=== PATIENT | male | born 1930 | race Caucasian/White ===

== ENCOUNTER 2018-01-17 18:14 | Inpatient (IN) | payer MEDICARE, BC ==
[~2018-01-17] VITALS: Ht 177.8 cm; Wt 72.0 kg
[~2018-01-17 18:14] MED LIST: ASPI-1265 PO; ASPI81TA46 PO; ATOR-2 PO; BUPR150T8 PO; CLOP75TA33; MELA3TAB PO; NITR0.4T51 SL; OMEP40CA37 PO; ZET10T
[2018-01-17 18:42] LABS: BASOPHILS % (AUTO) 0.3 % (0-1); EOSINOPHILS # (AUTO) 0.2 X10'3 (0-0.9); EOSINOPHILS % (AUTO) 2.9 % (0-6); HEMATOCRIT 34.4 % (42.0-52.0); HEMOGLOBIN 11.4 g/dl (14.0-17.9); LYMPHOCYTES # (AUTO) 1.3 X10'3 (1.1-4.8); LYMPHOCYTES % (AUTO) 21.7 % (21-51); MEAN CORPUSCULAR HEMOGLOBIN 30.3 PG (27.0-31.0); MEAN CORPUSCULAR HGB CONC 33.2 % (33.0-36.5); MEAN CORPUSCULAR VOLUME 91.4 FL (78-98); MEAN PLATELET VOLUME 8.3 FL (7.4-10.4); MONOCYTES # (AUTO) 0.9 X10'3 (0-0.9); MONOCYTES % (AUTO) 14.4 % (2-12); NEUTROPHILS # (AUTO) 3.8 X10'3 (1.8-7.7); NEUTROPHILS % (AUTO) 60.7 % (42-75); PLATELET COUNT 184 X10'3 (140-440); RED BLOOD COUNT 3.77 X10'6 (4.70-6.10); RED CELL DISTRIBUTION WIDTH 17.8 % (11.5-14.5); WHITE BLOOD COUNT 6.2 X10'3 (4.5-11.0)
[2018-01-17 18:57] LABS: ALANINE AMINOTRANSFERASE 19 U/L (12-78); ALBUMIN 2.9 G/DL (3.4-5.0); ALBUMIN/GLOBULIN RATIO 0.8 (1.1-1.5); ALKALINE PHOSPHATASE 79 IU/L (46-116); ANION GAP 7 (8-16); ASPARTATE AMINO TRANSFERASE 19 U/L (10-37); BILIRUBIN,TOTAL 0.4 MG/DL (0.1-1.0); BLOOD UREA NITROGEN 31 MG/DL (7-18); BUN/CREATININE RATIO 20.8 (5.4-32.0); CALCIUM 8.3 MG/DL (8.5-10.1); CHLORIDE 103 MMOL/L (99-107); CREATININE 1.49 MG/DL (0.60-1.10); GLUCOSE 135 MG/DL (70-104); POTASSIUM 4.2 MMOL/L (3.5-5.1); SODIUM 137 MMOL/L (135-145); TOTAL CARBON DIOXIDE 27.3 MMOL/L (24-32); TOTAL PROTEIN 6.6 G/DL (6.4-8.2); eGFR 45 ML/MIN
[2018-01-17 19:00] LABS: INR 1.1 INR; PARTIAL THROMBOPLASTIN TIME 28 SECONDS (22-32); PROTHROMBIN TIME 11.4 SECONDS (9.0-12.0)
[2018-01-17] MEDS ORDERED: FURO-150 PO (19:14)
[2018-01-17] MEDS ORDERED: SACU1TAB (19:14)
[2018-01-17] MEDS ORDERED: TRAZ300T2 PO (19:14)
[2018-01-17] MEDS ORDERED: OMEP40CA37 PO (19:14)
[2018-01-17] MEDS ORDERED: LEVE500T PO (19:14)
[2018-01-17] MEDS ORDERED: CARV3.122 PO (19:14)
[2018-01-17] MEDS ORDERED: ESCI5TAB PO (19:14)
[2018-01-17] MEDS ORDERED: MAGN400C PO (19:14)
[2018-01-17] MEDS ORDERED: SPIR25TA5 PO (19:14)
[2018-01-17] MEDS ORDERED: ISOS10TA8 PO (19:14)
[2018-01-17] MEDS ORDERED: RANO500T3 PO (19:16)
[2018-01-18] VITALS (7 sets, daily range): BP systolic 103–137; BP diastolic 34–76
[2018-01-18] MEDS ORDERED: ondansetron/PF 4mg/2ml inj IV PRN (00:20)
[2018-01-18] MEDS ORDERED: mag hydrox/Alum hydrox/simeth 30ml oral suspension PO PRN (00:20)
[2018-01-18] MEDS ORDERED: magnesium hydroxide 30ml (MOM) UD suspension PO PRN (00:20)
[2018-01-18] MEDS ORDERED: acetaminophen 325mg tablet PO PRN (00:20)
[2018-01-18] MEDS ORDERED: nitroGLYCERIN 0.4mg SUBLingual tab SL PRN ×2 (00:25→08:55)
[2018-01-18] MEDS ORDERED: SACU1TAB PO (00:29)
[2018-01-18] MEDS: aspirin 81mg tab.chew PO SCH (07:57)
[2018-01-18] MEDS: citalopram 20mg tablet PO SCH (07:57)
[2018-01-18] MEDS: isosorbide mononitrate 30mg tab.SR.24H PO SCH (07:58)
[2018-01-18] MEDS: ranolazine 500mg SR tablet (Q12H) PO SCH (07:58)
[2018-01-18] MEDS: magnesium oxide 400mg tablet PO SCH ×2 (07:58→21:32)
[2018-01-18] MEDS: spironolactone 25 MG tablet PO SCH (07:58)
[2018-01-18] MEDS: furosemide 20MG tablet PO SCH ×2 (07:59→21:33)
[2018-01-18] MEDS: pantoprazole 40mg Tablet.DR PO SCH (07:59)
[2018-01-18] MEDS: levetiracetam 250mg tablet PO SCH ×2 (07:59→21:31)
[2018-01-18] MEDS: heparin, porcine 5000 units/ml vial SQ SCH ×2 (08:00→21:32)
[2018-01-18] MEDS: atorvastatin 20mg tablet PO SCH (08:00)
[2018-01-18] MEDS: sacubitril/valsartan 24mg-26mg tablet PO SCH ×2 (08:11→21:33)
[2018-01-18] MEDS: carVEDilol 3.125mg tablet PO SCH ×2 (08:12→21:33)
[2018-01-18] MEDS ORDERED: aminophylline 250mg/10ml inj. IV PRN (08:55)
[2018-01-18] MEDS ORDERED: regadenoson 0.4mg/5ml syringe IV ONE (08:55)
[2018-01-18] MEDS ORDERED: metoprolol tartrate 1mg/ml inj IV PRN (08:55)
[2018-01-18] MEDS ORDERED: traZODone 150mg tablet PO SCH (21:00)
[2018-01-19 02:00] VITALS: BP 92/48
[2018-01-19 06:00] VITALS: BP 111/42
[2018-01-19 06:05] LABS: BASOPHILS % (AUTO) 0.4 % (0-1); EOSINOPHILS # (AUTO) 0.3 X10'3 (0-0.9); EOSINOPHILS % (AUTO) 3.8 % (0-6); HEMATOCRIT 33.3 % (42.0-52.0); HEMOGLOBIN 11.1 g/dl (14.0-17.9); LYMPHOCYTES % (AUTO) 28.2 % (21-51); MEAN CORPUSCULAR HEMOGLOBIN 30.3 PG (27.0-31.0); MEAN CORPUSCULAR HGB CONC 33.2 % (33.0-36.5); MEAN CORPUSCULAR VOLUME 91.2 FL (78-98); MEAN PLATELET VOLUME 8.8 FL (7.4-10.4); MONOCYTES # (AUTO) 0.9 X10'3 (0-0.9); MONOCYTES % (AUTO) 12.8 % (2-12); NEUTROPHILS % (AUTO) 54.8 % (42-75); PLATELET COUNT 165 X10'3 (140-440); RED BLOOD COUNT 3.66 X10'6 (4.70-6.10); RED CELL DISTRIBUTION WIDTH 17.4 % (11.5-14.5); WHITE BLOOD COUNT 7.2 X10'3 (4.5-11.0)
[2018-01-19 06:09] LABS: ALANINE AMINOTRANSFERASE 17 U/L (12-78); ALBUMIN 2.7 G/DL (3.4-5.0); ALBUMIN/GLOBULIN RATIO 0.8 (1.1-1.5); ALKALINE PHOSPHATASE 72 IU/L (46-116); ANION GAP 8 (8-16); ASPARTATE AMINO TRANSFERASE 18 U/L (10-37); BILIRUBIN,TOTAL 0.7 MG/DL (0.1-1.0); BLOOD UREA NITROGEN 29 MG/DL (7-18); CALCIUM 8.4 MG/DL (8.5-10.1); CHLORIDE 104 MMOL/L (99-107); CREATININE 1.32 MG/DL (0.60-1.10); GLUCOSE 84 MG/DL (70-104); POTASSIUM 4.3 MMOL/L (3.5-5.1); SODIUM 139 MMOL/L (135-145); TOTAL CARBON DIOXIDE 26.8 MMOL/L (24-32); eGFR 52 ML/MIN
[2018-01-19] MEDS ORDERED: metoprolol tartrate 1mg/ml inj IV PRN (08:35)
[2018-01-19] MEDS ORDERED: aminophylline 250mg/10ml inj. IV PRN (08:35)
[2018-01-19] MEDS ORDERED: regadenoson 0.4mg/5ml syringe IV PRN (08:35)
[2018-01-19] MEDS ORDERED: nitroGLYCERIN 0.4mg SUBLingual tab SL PRN (08:35)
[2018-01-19] MEDS: carVEDilol 3.125mg tablet PO SCH (10:16)
[2018-01-19] MEDS: ranolazine 500mg SR tablet (Q12H) PO SCH (10:16)
[2018-01-19] MEDS: atorvastatin 20mg tablet PO SCH (10:18)
[2018-01-19] MEDS: isosorbide mononitrate 30mg tab.SR.24H PO SCH (10:18)
[2018-01-19] MEDS: furosemide 20MG tablet PO SCH (10:18)
[2018-01-19] MEDS: aspirin 81mg tab.chew PO SCH (10:19)
[2018-01-19] MEDS: citalopram 20mg tablet PO SCH (10:19)
[2018-01-19] MEDS: pantoprazole 40mg Tablet.DR PO SCH (10:19)
[2018-01-19] MEDS: spironolactone 25 MG tablet PO SCH (10:20)
[2018-01-19] MEDS: magnesium oxide 400mg tablet PO SCH (10:20)
[2018-01-19] MEDS: sacubitril/valsartan 24mg-26mg tablet PO SCH (10:20)
[2018-01-19] MEDS: levetiracetam 250mg tablet PO SCH (10:21)
[2018-01-19] MEDS: heparin, porcine 5000 units/ml vial SQ SCH (10:22)
[2018-01-19 11:00] VITALS: BP 88/41
[2018-01-19 12:15] VITALS: BP 93/44
== END 2018-01-19 14:40 | disposition home or self-care (01) | DRG 303 ==
LOC: ER 18:15 → ED HOLD 01-18 00:19 → PCU 3S 01-18 01:54
PROVIDERS: ADMIT Internal Medicine; ATTEND Family Medicine
DX: I25.119 Atherosclerotic heart disease of native coronary artery with unspecified angina pectoris (principal); G47.30 Sleep apnea, unspecified; I50.9 Heart failure, unspecified; K21.9 Gastro-esophageal reflux disease without esophagitis; N40.0 Benign prostatic hyperplasia without lower urinary tract symptoms; Z95.1 Presence of aortocoronary bypass graft; Z89.512 Acquired absence of left leg below knee; Z90.49 Acquired absence of other specified parts of digestive tract; Z88.8 Allergy status to other drugs, medicaments and biological substances; Z79.899 Other long term (current) drug therapy; Z79.82 Long term (current) use of aspirin; Z87.891 Personal history of nicotine dependence
CPT/HCPCS: 36415; 71045; 80053; 84484; 85025; 85610; 85730; 87070; 93005; 93306; G0378; J1644

== ENCOUNTER 2018-08-13 11:13 | Emergency (ER) | payer MEDICARE, BC ==
[~2018-08-13] VITALS: Ht 177.8 cm; Wt 75.9 kg
[~2018-08-13 11:13] MED LIST changes: -ASPI81TA46 PO; -BUPR150T8 PO; +CARV3.122 PO; -CLOP75TA33; +ESCI5TAB PO; +FURO-150 PO; +ISOS10TA8 PO; +LEVE500T PO; +MAGN400C PO; -MELA3TAB PO; +RANO500T3 PO; +SACU1TAB PO; +SPIR25TA5 PO; +TRAZ300T2 PO; -ZET10T
[2018-08-13 11:42] VITALS: BP 128/59
--- NOTE | 2018-08-13 12:31 | NUR ---
C/O UNPROD DRY COUGH X 2 DAYS
[2018-08-13] MEDS ORDERED: LEVO750T21 PO (12:51)
[2018-08-13] MEDS ORDERED: GUAI120L55 PO (12:51)
[2018-08-13] MEDS ORDERED: BENZ-16 PO (12:51)
== END 2018-08-13 13:07 | disposition home or self-care (01) ==
LOC: ER 11:13
DX: R05 Cough (principal); I25.10 Atherosclerotic heart disease of native coronary artery without angina pectoris; I50.9 Heart failure, unspecified; K21.9 Gastro-esophageal reflux disease without esophagitis; Z90.49 Acquired absence of other specified parts of digestive tract; Z95.1 Presence of aortocoronary bypass graft; Z98.890 Other specified postprocedural states; Z79.899 Other long term (current) drug therapy; Z79.82 Long term (current) use of aspirin
CPT/HCPCS: 99283

== ENCOUNTER 2019-02-28 11:42 | Emergency (ER) | payer MEDICARE, BC ==
[~2019-02-28] VITALS: Ht 177.8 cm; Wt 84.0 kg
[~2019-02-28 11:42] MED LIST changes: +GUAI120L55 PO; +OMEP40CA13 PO; -OMEP40CA37 PO
[2019-02-28 11:57] LABS: BASOPHILS % (AUTO) 0.4 % (0-1); EOSINOPHILS # (AUTO) 0.3 X10'3 (0-0.9); EOSINOPHILS % (AUTO) 3.5 % (0-6); HEMATOCRIT 36.3 % (42.0-52.0); LYMPHOCYTES % (AUTO) 27.2 % (21-51); MEAN CORPUSCULAR HEMOGLOBIN 29.5 PG (27.0-31.0); MEAN CORPUSCULAR HGB CONC 33.1 g/dL (33.0-36.5); MEAN CORPUSCULAR VOLUME 89.3 FL (78-98); MEAN PLATELET VOLUME 7.3 FL (7.4-10.4); MONOCYTES % (AUTO) 13.4 % (2-12); NEUTROPHILS % (AUTO) 55.5 % (42-75); PLATELET COUNT 195 X10'3 (140-440); RED BLOOD COUNT 4.07 X10'6 (4.70-6.10); RED CELL DISTRIBUTION WIDTH 18.9 % (11.5-14.5); WHITE BLOOD COUNT 7.2 X10'3 (4.5-11.0)
[2019-02-28 12:15] LABS: ALANINE AMINOTRANSFERASE 15 U/L (12-78); ALBUMIN 2.9 G/DL (3.4-5.0); ALBUMIN/GLOBULIN RATIO 0.8 (1.1-1.5); ALKALINE PHOSPHATASE 70 IU/L (46-116); ANION GAP 7 (8-16); ASPARTATE AMINO TRANSFERASE 12 U/L (10-37); BILIRUBIN,TOTAL 0.4 MG/DL (0.1-1.0); BLOOD UREA NITROGEN 27 MG/DL (7-18); BUN/CREATININE RATIO 20.5 (5.4-32.0); CALCIUM 8.6 MG/DL (8.5-10.1); CHLORIDE 108 MMOL/L (99-107); CREATININE 1.32 MG/DL (0.60-1.10); GLUCOSE 102 MG/DL (70-104); SODIUM 142 MMOL/L (135-145); TOTAL CARBON DIOXIDE 26.7 MMOL/L (24-32); TOTAL PROTEIN 6.4 G/DL (6.4-8.2); eGFR 51 ML/MIN
[2019-02-28 12:50] LABS: ANISOCYTOSIS 2+; PLATELET ESTIMATE NORMAL; SCHISTOCYTES FEW
[2019-02-28 12:51] LABS: ELLIPTOCYTES FEW
[2019-02-28 13:13] VITALS: BP 134/79
--- NOTE | 2019-02-28 13:15 | NUR ---
PT'S VERY UPSET ABOUT WAIT TIMES. I EXPLAINED THAT WE WERE WAITING ON LABS/TEST AND SHE IS STILL UPSET.
--- NOTE | 2019-02-28 13:22 | NUR ---
DR OREILLY AT BEDSIDE.
== END 2019-02-28 14:09 | disposition home or self-care (01) ==
LOC: ER 11:43
DX: R07.89 Other chest pain (principal); R42 Dizziness and giddiness; I25.10 Atherosclerotic heart disease of native coronary artery without angina pectoris; I50.9 Heart failure, unspecified; G47.30 Sleep apnea, unspecified; K21.9 Gastro-esophageal reflux disease without esophagitis; Z90.49 Acquired absence of other specified parts of digestive tract; Z95.1 Presence of aortocoronary bypass graft; Z98.890 Other specified postprocedural states; Z88.8 Allergy status to other drugs, medicaments and biological substances; Z79.82 Long term (current) use of aspirin; Z79.899 Other long term (current) drug therapy
CPT/HCPCS: 36415; 71045; 80053; 84484; 85025; 93005; 99284

== ENCOUNTER 2019-04-16 12:51 | Emergency (ER) | payer MEDICARE, BC ==
[~2019-04-16] VITALS: Ht 177.8 cm; Wt 80.0 kg
[2019-04-16 13:28] LABS: BASOPHILS % (AUTO) 0.4 % (0-1); EOSINOPHILS # (AUTO) 0.2 X10'3 (0-0.9); EOSINOPHILS % (AUTO) 3.2 % (0-6); HEMATOCRIT 33.5 % (42.0-52.0); HEMOGLOBIN 11.2 g/dl (14.0-17.9); LYMPHOCYTES # (AUTO) 1.5 X10'3 (1.1-4.8); LYMPHOCYTES % (AUTO) 27.3 % (21-51); MEAN CORPUSCULAR HEMOGLOBIN 29.6 PG (27.0-31.0); MEAN CORPUSCULAR HGB CONC 33.3 g/dL (33.0-36.5); MEAN CORPUSCULAR VOLUME 88.8 FL (78-98); MEAN PLATELET VOLUME 7.5 FL (7.4-10.4); MONOCYTES # (AUTO) 0.7 X10'3 (0-0.9); NEUTROPHILS % (AUTO) 56.1 % (42-75); PLATELET COUNT 162 X10'3 (140-440); RED BLOOD COUNT 3.77 X10'6 (4.70-6.10); RED CELL DISTRIBUTION WIDTH 18.1 % (11.5-14.5); WHITE BLOOD COUNT 5.4 X10'3 (4.5-11.0)
[2019-04-16 13:46] LABS: ALANINE AMINOTRANSFERASE 19 U/L (12-78); ALBUMIN 2.8 G/DL (3.4-5.0); ALBUMIN/GLOBULIN RATIO 0.9 (1.1-1.5); ALKALINE PHOSPHATASE 63 IU/L (46-116); ANION GAP 7 (8-16); ASPARTATE AMINO TRANSFERASE 15 U/L (10-37); BILIRUBIN,TOTAL 0.3 MG/DL (0.1-1.0); BLOOD UREA NITROGEN 21 MG/DL (7-18); BUN/CREATININE RATIO 16.7 (5.4-32.0); CALCIUM 8.3 MG/DL (8.5-10.1); CHLORIDE 107 MMOL/L (99-107); CREATININE 1.26 MG/DL (0.60-1.10); GLUCOSE 93 MG/DL (70-104); POTASSIUM 4.6 MMOL/L (3.5-5.1); SODIUM 141 MMOL/L (135-145); TOTAL CARBON DIOXIDE 27.4 MMOL/L (24-32); eGFR 54 ML/MIN
[2019-04-16 16:13] VITALS: BP 101/63
== END 2019-04-16 16:15 | disposition home or self-care (01) ==
LOC: ER 12:52
DX: R07.89 Other chest pain (principal); I25.10 Atherosclerotic heart disease of native coronary artery without angina pectoris; I50.9 Heart failure, unspecified; K21.9 Gastro-esophageal reflux disease without esophagitis; Z90.49 Acquired absence of other specified parts of digestive tract; Z89.512 Acquired absence of left leg below knee; Z95.1 Presence of aortocoronary bypass graft; Z98.890 Other specified postprocedural states; Z88.8 Allergy status to other drugs, medicaments and biological substances; Z79.82 Long term (current) use of aspirin; Z79.899 Other long term (current) drug therapy
CPT/HCPCS: 36415; 71045; 80053; 84484; 85025; 93005; 99284

== ENCOUNTER 2019-05-04 14:33 | Emergency (ER) | payer MEDICARE, BC ==
[~2019-05-04] VITALS: Ht 177.8 cm; Wt 160.0 kg
[2019-05-04] MEDS ORDERED: aspirin 325mg tablet PO ONE (14:50)
[2019-05-04 14:54] LABS: BASOPHILS % (AUTO) 0.5 % (0-1); EOSINOPHILS # (AUTO) 0.1 X10'3 (0-0.9); EOSINOPHILS % (AUTO) 1.7 % (0-6); HEMATOCRIT 33.2 % (42.0-52.0); HEMOGLOBIN 11.1 g/dl (14.0-17.9); LYMPHOCYTES # (AUTO) 1.8 X10'3 (1.1-4.8); LYMPHOCYTES % (AUTO) 27.4 % (21-51); MEAN CORPUSCULAR HEMOGLOBIN 29.9 PG (27.0-31.0); MEAN CORPUSCULAR HGB CONC 33.5 g/dL (33.0-36.5); MEAN CORPUSCULAR VOLUME 89.5 FL (78-98); MEAN PLATELET VOLUME 7.4 FL (7.4-10.4); MONOCYTES # (AUTO) 0.7 X10'3 (0-0.9); MONOCYTES % (AUTO) 10.8 % (2-12); NEUTROPHILS # (AUTO) 3.9 X10'3 (1.8-7.7); NEUTROPHILS % (AUTO) 59.6 % (42-75); PLATELET COUNT 164 X10'3 (140-440); RED BLOOD COUNT 3.71 X10'6 (4.70-6.10); RED CELL DISTRIBUTION WIDTH 18.4 % (11.5-14.5); WHITE BLOOD COUNT 6.5 X10'3 (4.5-11.0)
[2019-05-04 15:06] LABS: ALANINE AMINOTRANSFERASE 13 U/L (12-78); ALKALINE PHOSPHATASE 70 IU/L (46-116); ANION GAP 8 (8-16); ASPARTATE AMINO TRANSFERASE 18 U/L (10-37); BILIRUBIN,TOTAL 0.7 MG/DL (0.1-1.0); BLOOD UREA NITROGEN 20 MG/DL (7-18); BUN/CREATININE RATIO 18.2 (5.4-32.0); CALCIUM 8.3 MG/DL (8.5-10.1); CHLORIDE 106 MMOL/L (99-107); GLUCOSE 104 MG/DL (70-104); POTASSIUM 4.1 MMOL/L (3.5-5.1); SODIUM 139 MMOL/L (135-145); TOTAL CARBON DIOXIDE 24.8 MMOL/L (24-32); TOTAL PROTEIN 6.1 G/DL (6.4-8.2); eGFR 63 ML/MIN
[2019-05-04 15:26] VITALS: BP 147/66
== END 2019-05-04 16:09 | disposition home or self-care (01) ==
LOC: ER 14:33
DX: R07.89 Other chest pain (principal); I25.10 Atherosclerotic heart disease of native coronary artery without angina pectoris; I50.9 Heart failure, unspecified; G47.30 Sleep apnea, unspecified; K21.9 Gastro-esophageal reflux disease without esophagitis; Z90.49 Acquired absence of other specified parts of digestive tract; Z98.890 Other specified postprocedural states; Z95.1 Presence of aortocoronary bypass graft; Z88.8 Allergy status to other drugs, medicaments and biological substances; Z79.82 Long term (current) use of aspirin; Z79.899 Other long term (current) drug therapy
CPT/HCPCS: 36415; 71045; 80053; 84484; 85025; 93005; 99285

== ENCOUNTER 2021-11-10 10:29 | Inpatient (IN) | payer MEDICARE, BC ==
[~2021-11-10] VITALS: Ht 177.8 cm; Wt 74.0 kg
[~2021-11-10 10:29] MED LIST changes: -OMEP40CA13 PO; +OMEP40CA21 PO
[2021-11-10] MEDS ORDERED: CefTRIAXone 2gm/D5W 50ml BAG 50 ML IV ONE (10:45)
[2021-11-10] MEDS ORDERED: acetaminophen 325mg tablet PO STA (10:45)
[2021-11-10] MEDS ORDERED: normal saline 1000ML IV soln IV ONE (10:45)
[2021-11-10 11:14] LABS: BASOPHILS % (AUTO) 0.2 % (0-1); EOSINOPHILS % (AUTO) 0 % (0-6); HEMATOCRIT 35.6 % (42.0-52.0); LYMPHOCYTES # (AUTO) 0.7 X10'3 (1.1-4.8); LYMPHOCYTES % (AUTO) 5.2 % (21-51); MEAN CORPUSCULAR HEMOGLOBIN 35.4 PG (27.0-31.0); MEAN CORPUSCULAR HGB CONC 33.8 g/dL (33.0-36.5); MEAN CORPUSCULAR VOLUME 104.7 FL (78-98); MEAN PLATELET VOLUME 8.3 FL (7.4-10.4); MONOCYTES # (AUTO) 1.6 X10'3 (0-0.9); MONOCYTES % (AUTO) 12.7 % (2-12); NEUTROPHILS # (AUTO) 10.4 X10'3 (1.8-7.7); NEUTROPHILS % (AUTO) 81.9 % (42-75); PLATELET COUNT 86 X10'3 (140-440); RED CELL DISTRIBUTION WIDTH 14.3 % (11.5-14.5); WHITE BLOOD COUNT 12.7 X10'3 (4.5-11.0)
[2021-11-10] MEDS ORDERED: METO-395 PO (11:31)
[2021-11-10] MEDS ORDERED: [UNRECOGNIZED DRUG - OTHER] (11:31)
[2021-11-10] MEDS ORDERED: CLOP75TA34 PO (11:31)
[2021-11-10] MEDS ORDERED: [UNRECOGNIZED DRUG - REMARK] (11:31)
--- NOTE | 2021-11-10 11:31 | NUR ---
Attempted to reconcile medications. Pt is a poor historian and his medication list is incomplete.
[2021-11-10] MEDS ORDERED: azithromycin/NS 500mg/250ml 250 ML IV ONE (11:35)
--- NOTE | 2021-11-10 11:35 | NUR ---
LA 4.1. INFORMED NOEL CARLIN
[2021-11-10 11:38] LABS: ALANINE AMINOTRANSFERASE 51 U/L (12-78); ALBUMIN 2.7 G/DL (3.4-5.0); ALBUMIN/GLOBULIN RATIO 0.8 (1.1-1.5); ALKALINE PHOSPHATASE 77 IU/L (46-116); ANION GAP 12 (8-16); ASPARTATE AMINO TRANSFERASE 66 U/L (10-37); BILIRUBIN,TOTAL 1.1 MG/DL (0.1-1.0); BLOOD UREA NITROGEN 40 MG/DL (7-18); BUN/CREATININE RATIO 25.5 (5.4-32.0); CALCIUM 8.2 MG/DL (8.5-10.1); CHLORIDE 102 MMOL/L (99-107); CREATININE 1.57 MG/DL (0.60-1.10); GLUCOSE 128 MG/DL (70-104); POTASSIUM 3.9 MMOL/L (3.5-5.1); SODIUM 136 MMOL/L (135-145); TOTAL CARBON DIOXIDE 21.7 MMOL/L (24-32); TOTAL PROTEIN 6.2 G/DL (6.4-8.2); eGFR 42 ML/MIN
[2021-11-10] MEDS ORDERED: methylPREDNISolone sod succ 125mg/2ml vial IV ONE (11:40)
[2021-11-10] MEDS ORDERED: ipratropium/albuterol 3ml nebule NEB ONE (11:40)
[2021-11-10] MEDS ORDERED: vancomycin/NS 1 GM ADD-VANTAGE 250 ML IV ONE (11:45)
[2021-11-10] MEDS ORDERED: ATOR40TA71 PO (12:22)
[2021-11-10] MEDS ORDERED: METO25TA6 PO (13:07)
[2021-11-10] MEDS ORDERED: LIPA1CAP18 PO (13:15)
[2021-11-10] MEDS ORDERED: PANT20TA18 PO (13:16)
[2021-11-10] MEDS ORDERED: ISOS30TA84 PO (13:17)
[2021-11-10 13:24] LABS: CLARITY,URINE CLEAR (Clear); COLOR,URINE YELLOW (Yellow); GLUCOSE, URINE NEGATIVE (Neg); KETONES,URINE NEGATIVE (Neg); LEUKOCYTE ESTERASE ,URINE NEGATIVE (Neg); NITRITES, URINE NEGATIVE (Neg); OCCULT BLOOD,URINE MODERATE (Neg); PH,URINE 5.5 (4.8-8.0); PROTEIN,URINE 100 mg/dl (Neg); UROBILINOGEN,URINE 0.2 E.U/dL (0.2-1.0)
[2021-11-10 13:27] LABS: UA COLLECTION TYPE OTHER
[2021-11-10 13:31] LABS: MUCUS STRANDS FEW /LPF (Neg)
[2021-11-10 13:32] LABS: COARSE GRANULAR CAST 0-3 /LPF (NEGATIVE); SQUAMOUS EPITHELIAL CELL,UR FEW /LPF (FEW)
[2021-11-10 13:35] LABS: AMORPHOUS URATES 1+; BACTERIA,URINE FEW /HPF (Neg)
[2021-11-10] MEDS ORDERED: mag hydrox/Alum hydrox/simeth 30ml oral suspension PO PRN (14:15)
[2021-11-10] MEDS ORDERED: magnesium hydroxide 30ml (MOM) UD suspension PO PRN (14:15)
[2021-11-10] MEDS ORDERED: POTASSIUM BICARB 20meq eff tab 20 MEQ TABLET.EFF PO PRN ×2 (14:15)
[2021-11-10] MEDS ORDERED: magnesium 4gm in 100ml NS 100 ML IV PRN (14:15)
[2021-11-10] MEDS ORDERED: potassium CL 10mEq/100ml bag 100 ML IV PRN (14:15)
[2021-11-10] MEDS ORDERED: magnesium Cl slow-release 64mg tablet PO PRN (14:15)
[2021-11-10] MEDS ORDERED: HYDROmorphone/PF 0.2 MG/ML SYRINGE IV PRN (14:15)
[2021-11-10] MEDS ORDERED: acetaminophen 650mg rectal suppository RC PRN (14:15)
[2021-11-10] MEDS ORDERED: HYDROmorphone inj. 0.5 MG/0.5 ML DISP.SYRIN IV PRN (14:15)
[2021-11-10] MEDS ORDERED: TRAZ-251 PO (14:15)
[2021-11-10] MEDS ORDERED: acetaminophen 325mg tablet PO PRN (14:15)
[2021-11-10] MEDS ORDERED: bisacodyl 10mg suppository rectal RC PRN (14:15)
[2021-11-10] MEDS ORDERED: ondansetron 4mg rapidly disintigrating tab PO PRN (14:15)
[2021-11-10] MEDS ORDERED: ondansetron/PF 4mg/2ml inj IV PRN (14:15)
[2021-11-10] MEDS ORDERED: magnesium 2GM in 50ml NS 50 ML IV PRN (14:15)
[2021-11-10] MEDS ORDERED: nitroGLYCERIN 0.4mg SUBLingual tab SL PRN (14:40)
[2021-11-10] MEDS ORDERED: HEPARIN SOD,PORK IN 0.45% NACL 250 ML IV SCH ×2 (14:50→15:14)
[2021-11-10] MEDS ORDERED: heparin 10,000 units/1 ML INJ IV PRN (14:50)
[2021-11-10] MEDS ORDERED: heparin 10,000 units/1 ML INJ IV ONE (14:50)
[2021-11-10 14:55] LABS: MAGNESIUM 1.7 MG/DL (1.5-2.4); PHOSPHORUS 2.9 MG/DL (2.3-4.5); POTASSIUM 3.7 MMOL/L (3.5-5.1)
[2021-11-10 16:00] LABS: BASOPHILS % (AUTO) 0.1 % (0-1); EOSINOPHILS % (AUTO) 0 % (0-6); HEMATOCRIT 32.5 % (42.0-52.0); HEMOGLOBIN 11.1 g/dl (14.0-17.9); LYMPHOCYTES # (AUTO) 0.8 X10'3 (1.1-4.8); LYMPHOCYTES % (AUTO) 6.5 % (21-51); MEAN CORPUSCULAR HEMOGLOBIN 35.4 PG (27.0-31.0); MEAN CORPUSCULAR HGB CONC 34.3 g/dL (33.0-36.5); MEAN CORPUSCULAR VOLUME 103.2 FL (78-98); MEAN PLATELET VOLUME 8.7 FL (7.4-10.4); MONOCYTES % (AUTO) 8.4 % (2-12); NEUTROPHILS # (AUTO) 10.5 X10'3 (1.8-7.7); PLATELET COUNT 85 X10'3 (140-440); RED BLOOD COUNT 3.15 X10'6 (4.70-6.10); RED CELL DISTRIBUTION WIDTH 14.2 % (11.5-14.5); WHITE BLOOD COUNT 12.4 X10'3 (4.5-11.0)
[2021-11-10 16:08] LABS: APTT 31 SECONDS (22-32)
[2021-11-10] MEDS: normal saline 1000ml 1,000 ML IV SCH (16:31)
[2021-11-10] MEDS: docusate sod 100mg capsule PO SCH (19:29)
[2021-11-10] MEDS: K and/or MAG REPLACEMENT MC SCH (19:29)
[2021-11-10] MEDS: sacubitril/valsartan 24mg-26mg tablet PO SCH (19:30)
[2021-11-10] MEDS: ranolazine 500mg SR tablet (Q12H) PO SCH (19:30)
[2021-11-10] MEDS: metoprolol tartrate 25mg tablet PO SCH (19:30)
[2021-11-10] MEDS: LIPASE PO SCH (19:37)
[2021-11-10] MEDS: PROTEASE PO SCH (19:37)
[2021-11-10] MEDS: AMYLASE PO SCH (19:37)
[2021-11-10 22:56] LABS: APTT 70 SECONDS (22-32)
[2021-11-11] MEDS: normal saline 1000ml 1,000 ML IV SCH ×3 (00:15→20:15)
--- NOTE | 2021-11-11 01:18 | NUR ---
NOTIFIED DR. PAGE OF LOW BP. LAID EYES ON PT. BP IS NOW 122/51.
[2021-11-11 03:44] LABS: BASOPHILS % (AUTO) 0.1 % (0-1); EOSINOPHILS % (AUTO) 0 % (0-6); HEMATOCRIT 33.3 % (42.0-52.0); HEMOGLOBIN 11.3 g/dl (14.0-17.9); LYMPHOCYTES # (AUTO) 0.6 X10'3 (1.1-4.8); LYMPHOCYTES % (AUTO) 5.2 % (21-51); MEAN CORPUSCULAR HEMOGLOBIN 35.2 PG (27.0-31.0); MEAN CORPUSCULAR HGB CONC 33.9 g/dL (33.0-36.5); MEAN CORPUSCULAR VOLUME 104.1 FL (78-98); MEAN PLATELET VOLUME 8.5 FL (7.4-10.4); MONOCYTES # (AUTO) 0.5 X10'3 (0-0.9); MONOCYTES % (AUTO) 4.5 % (2-12); NEUTROPHILS # (AUTO) 10.6 X10'3 (1.8-7.7); NEUTROPHILS % (AUTO) 90.2 % (42-75); PLATELET COUNT 91 X10'3 (140-440); RED CELL DISTRIBUTION WIDTH 14.4 % (11.5-14.5); WHITE BLOOD COUNT 11.8 X10'3 (4.5-11.0)
[2021-11-11 04:02] LABS: APTT 63 SECONDS (22-32)
[2021-11-11 04:03] LABS: ALANINE AMINOTRANSFERASE 44 U/L (12-78); ALBUMIN 2.3 G/DL (3.4-5.0); ALBUMIN/GLOBULIN RATIO 0.7 (1.1-1.5); ALKALINE PHOSPHATASE 65 IU/L (46-116); ANION GAP 10 (8-16); ASPARTATE AMINO TRANSFERASE 45 U/L (10-37); BILIRUBIN,TOTAL 0.8 MG/DL (0.1-1.0); BLOOD UREA NITROGEN 40 MG/DL (7-18); BUN/CREATININE RATIO 31.3 (5.4-32.0); CALCIUM 7.7 MG/DL (8.5-10.1); CHLORIDE 107 MMOL/L (99-107); CREATININE 1.28 MG/DL (0.60-1.10); GLUCOSE 150 MG/DL (70-104); MAGNESIUM 1.9 MG/DL (1.5-2.4); POTASSIUM 3.8 MMOL/L (3.5-5.1); SODIUM 143 MMOL/L (135-145); TOTAL CARBON DIOXIDE 25.6 MMOL/L (24-32); TOTAL PROTEIN 5.6 G/DL (6.4-8.2); eGFR 53 ML/MIN
--- NOTE | 2021-11-11 06:33 | NUR ---
Assumed patient care at this time.
[2021-11-11] MEDS: LIPASE/PROTEASE/AMYLASE 10,500 units CAPSULE.DR PO SCH (06:40)
--- NOTE | 2021-11-11 07:11 | NUR ---
Report given to NOEL Pérez
[2021-11-11 08:00] VITALS: BP 144/60
[2021-11-11] MEDS: AMYLASE PO SCH (08:00)
[2021-11-11] MEDS: PROTEASE PO SCH (08:00)
[2021-11-11] MEDS: LIPASE PO SCH (08:00)
[2021-11-11] MEDS: K and/or MAG REPLACEMENT MC SCH ×2 (08:00→20:00)
[2021-11-11] MEDS ORDERED: PERFLUTREN PROTEIN-A MICROSPHR (Optison) 0.22 MG/ML 3ML VIAL IV ONE (08:10)
[2021-11-11] MEDS: CefTRIAXone/D5W-Rocephin 1gm 50 ML IV SCH (09:15)
[2021-11-11] MEDS: sacubitril/valsartan 24mg-26mg tablet PO SCH ×2 (09:43→20:00)
[2021-11-11] MEDS: aspirin 81mg tab.chew PO SCH (09:44)
[2021-11-11] MEDS: docusate sod 100mg capsule PO SCH ×2 (09:44→22:56)
[2021-11-11] MEDS: ranolazine 500mg SR tablet (Q12H) PO SCH ×2 (09:44→22:57)
[2021-11-11] MEDS: pantoprazole 40mg Tablet.DR PO SCH (09:44)
[2021-11-11] MEDS: clopidogrel 75mg tablet PO SCH (09:44)
[2021-11-11] MEDS: atorvastatin 20mg tablet PO SCH (09:44)
[2021-11-11] MEDS: isosorbide mononitrate 30mg tab.SR.24H PO SCH (09:45)
[2021-11-11] MEDS: ESCITALOPRAM OXALATE 5 MG TABLET PO SCH (09:45)
[2021-11-11] MEDS: metoprolol tartrate 25mg tablet PO SCH ×2 (09:45→20:00)
[2021-11-11 09:59] LABS: APTT 39 SECONDS (22-32)
[2021-11-11] MEDS: azithromycin/NS 500mg/250ml 250 ML IV SCH (10:33)
[2021-11-11] MEDS ORDERED: LIPASE/PROTEASE/AMYLASE 10,500 units CAPSULE.DR PO SCH (12:32)
--- NOTE | 2021-11-11 13:32 | NUR ---
PRESSURE ULCER EDUCATION: DEFINITION: A pressure ulcer is an area of skin that breaks down when you stay in one position too long. The constant pressure against the skin reduces the blood flow to that area and the affected tissue dies. CAUSES: "Being bedridden or in a wheelchair "Fragile skin "Having a chronic condition, such as diabetes or vascular disease "Inability to move certain parts of your body without assistance "Older age "Incontinence of urine or stool SYMPTOMS: "A reddened area that DOES NOT turn white when pressed on - this can be the beginning of a pressure ulcer "A blister, deep sore or a crater - these can be advanced pressure ulcers FIRST AID: "Relieve the pressure on this area "Keep the area clean and dry "Call your primary doctor if you see any of the above symptoms "DO NOT massage the area "DO NOT use a donut shaped or ring shaped pillow- these actually interfere with the blood flow and cause complications PREVENTION: "Check for pressure ulcers everyday "Change position at least every two hours to relieve pressure "Use items that help relieve pressure- pillows, sheepskin, foam padding, and powders. "Keep skin clean and dry "Eat healthy well balanced meals "Exercise daily IF YOU SEE ANY OF THESE SYMPTOMS WHILE IN THE HOSPITAL - TELL YOUR NURSE IMMEDIATELY. IF YOU SEE ANY OF THESE SYMPTOMS WHILE AT HOME OR HAVE ANY QUESTIONS OR CONCERNS ABOUT PRESSURE ULCERS - CALL YOUR PRIMARY DOCTOR IMMEDIATELY. Addendum: 11/11/21 at 1332 by Ria Adam LVN Amended: Links added.
[2021-11-11] MEDS: VANCOMYCIN 750MG IV in NS 250 ML IV SCH (14:00)
--- NOTE | 2021-11-11 15:11 | NUR ---
Malnutrition Consult: Pt admit DX sepsis, possible PNA, diarrhea c.diff pending, NSTEMI, CHF, and depression per EMR. Pt reports wt loss w/ decreased intake SONG PLUGGER but no wt loss amount chosen per RN Malnutrition Screen. Noted pt takes ranexa at home per EMR; may contribute to wt changes. Pt PO 75% first heart healthy meal this admit w/ no edema, normal muscle strength, and appears WD/WN per MD note. Pending scaled wt this admit w/ no prior scaled wt hx. Pt lacks minimum malnutrition criteria at this time. Noted Sacral stage I PI per WOC w/ R popliteal Riddle Cyst per MD note. Will monitor for further PO trends and nutrition intervention needs this admit. Rec: 1. continue heart healthy diet; consider regular diet if further PO regresses 2. monitor for PO trends and ONS needs 3. MVI supplementation per MD discretion; MCV 104.1 per EMR 4. routine bowel care 5. scaled wt this admit; subsequent weekly wts Addendum: 11/11/21 at [address] Amended: Links added.
[2021-11-11] MEDS: HYDROcodone/acetaminophen 10/325mg tab PO PRN (15:20)
[2021-11-11 15:39] VITALS: BP 96/44
--- NOTE | 2021-11-11 16:13 | NUR ---
PAGER ID: [phone] MESSAGE: RE CRYSTAL FRANCES [id number] PLEASE YEN CALL RE MRI/HEPARIN THANK YOU , DOROTHY COHEN
[2021-11-11 18:00] VITALS: BP 85/56
[2021-11-11 22:00] VITALS: BP 82/46
[2021-11-11] MEDS: heparin, porcine 5000 units/ml vial SQ SCH (22:58)
[2021-11-12 02:00] VITALS: BP 82/54
--- NOTE | 2021-11-12 05:51 | NUR ---
REVIEWED SOLAR HOT WATER INSTALLER CHARTING AND IN AGREEMENT.
[2021-11-12 06:00] VITALS: BP 90/56
[2021-11-12 06:11] LABS: BASOPHILS % (AUTO) 0.1 % (0-1); EOSINOPHILS % (AUTO) 0 % (0-6); HEMATOCRIT 31.5 % (42.0-52.0); HEMOGLOBIN 10.8 g/dl (14.0-17.9); LYMPHOCYTES # (AUTO) 0.8 X10'3 (1.1-4.8); MEAN CORPUSCULAR HEMOGLOBIN 35.8 PG (27.0-31.0); MEAN CORPUSCULAR HGB CONC 34.2 g/dL (33.0-36.5); MEAN CORPUSCULAR VOLUME 104.7 FL (78-98); MEAN PLATELET VOLUME 8.8 FL (7.4-10.4); MONOCYTES # (AUTO) 0.8 X10'3 (0-0.9); MONOCYTES % (AUTO) 5.1 % (2-12); NEUTROPHILS # (AUTO) 13.7 X10'3 (1.8-7.7); NEUTROPHILS % (AUTO) 89.8 % (42-75); PLATELET COUNT 102 X10'3 (140-440); RED BLOOD COUNT 3.01 X10'6 (4.70-6.10); RED CELL DISTRIBUTION WIDTH 14.8 % (11.5-14.5); WHITE BLOOD COUNT 15.3 X10'3 (4.5-11.0)
[2021-11-12] MEDS: normal saline 1000ml 1,000 ML IV SCH ×2 (06:15→14:43)
[2021-11-12 06:28] LABS: ALANINE AMINOTRANSFERASE 42 U/L (12-78); ALBUMIN 2.1 G/DL (3.4-5.0); ALBUMIN/GLOBULIN RATIO 0.6 (1.1-1.5); ALKALINE PHOSPHATASE 63 IU/L (46-116); ANION GAP 10 (8-16); ASPARTATE AMINO TRANSFERASE 32 U/L (10-37); BILIRUBIN,TOTAL 0.6 MG/DL (0.1-1.0); BLOOD UREA NITROGEN 44 MG/DL (7-18); BUN/CREATININE RATIO 36.1 (5.4-32.0); CHLORIDE 105 MMOL/L (99-107); CREATININE 1.22 MG/DL (0.60-1.10); GLUCOSE 123 MG/DL (70-104); MAGNESIUM 1.9 MG/DL (1.5-2.4); POTASSIUM 4.2 MMOL/L (3.5-5.1); SODIUM 136 MMOL/L (135-145); TOTAL CARBON DIOXIDE 21.2 MMOL/L (24-32); TOTAL PROTEIN 5.4 G/DL (6.4-8.2); eGFR 56 ML/MIN
[2021-11-12] MEDS: LIPASE/PROTEASE/AMYLASE 10,500 units CAPSULE.DR PO SCH ×3 (07:30→18:04)
[2021-11-12] MEDS: isosorbide mononitrate 30mg tab.SR.24H PO SCH (08:00)
[2021-11-12] MEDS: sacubitril/valsartan 24mg-26mg tablet PO SCH ×2 (08:00→23:36)
[2021-11-12] MEDS: K and/or MAG REPLACEMENT MC SCH ×2 (08:00→20:00)
[2021-11-12] MEDS: metoprolol tartrate 25mg tablet PO SCH ×2 (08:00→20:00)
[2021-11-12] MEDS: aspirin 81mg tab.chew PO SCH (08:36)
[2021-11-12] MEDS: atorvastatin 20mg tablet PO SCH (08:36)
[2021-11-12] MEDS: ranolazine 500mg SR tablet (Q12H) PO SCH ×2 (08:36→23:36)
[2021-11-12] MEDS: CefTRIAXone/D5W-Rocephin 1gm 50 ML IV SCH (08:36)
[2021-11-12] MEDS: azithromycin/NS 500mg/250ml 250 ML IV SCH (08:36)
[2021-11-12] MEDS: clopidogrel 75mg tablet PO SCH (08:36)
[2021-11-12] MEDS: ESCITALOPRAM OXALATE 5 MG TABLET PO SCH (08:36)
[2021-11-12] MEDS: pantoprazole 40mg Tablet.DR PO SCH (08:36)
[2021-11-12] MEDS: docusate sod 100mg capsule PO SCH ×2 (08:36→23:35)
[2021-11-12] MEDS: heparin, porcine 5000 units/ml vial SQ SCH ×2 (08:37→23:38)
[2021-11-12] MEDS: HYDROcodone/acetaminophen 10/325mg tab PO PRN ×2 (08:40→23:50)
[2021-11-12 11:00] VITALS: BP 112/50
--- NOTE | 2021-11-12 11:51 | NUR ---
PAGER ID: [phone] MESSAGE: MOSES FRANCES RM [id number] + MRSA BLOOD CULTURE THANK YOU, DOROTHY COHEN
[2021-11-12] MEDS: VANCOMYCIN 750MG IV in NS 250 ML IV SCH (14:38)
[2021-11-12 14:50] LABS: CHOL/HDL RATIO 2.5 (0.00-4.99); CHOLESTEROL 111 MG/DL (0-200); HDL CHOLESTEROL 45 MG/DL (35-60); LDL CHOLESTEROL 48 MG/DL (50-100); TRIGLYCERIDES 66 MG/DL (20-135)
[2021-11-12 15:00] VITALS: BP 123/64
[2021-11-12 15:36] LABS: HEMOGLOBIN A1C 5.9 % (4.5-6.2)
[2021-11-12 18:00] VITALS: BP 124/67
[2021-11-12 22:00] VITALS: BP 144/68
[2021-11-13 02:00] VITALS: BP 122/47
[2021-11-13] MEDS: normal saline 1000ml 1,000 ML IV SCH ×3 (02:11→12:48)
[2021-11-13 06:00] VITALS: BP 130/60
[2021-11-13 06:57] LABS: BASOPHILS % (AUTO) 0.1 % (0-1); EOSINOPHILS % (AUTO) 0 % (0-6); HEMATOCRIT 32.8 % (42.0-52.0); HEMOGLOBIN 11.4 g/dl (14.0-17.9); LYMPHOCYTES # (AUTO) 0.8 X10'3 (1.1-4.8); LYMPHOCYTES % (AUTO) 7.3 % (21-51); MEAN CORPUSCULAR HEMOGLOBIN 35.9 PG (27.0-31.0); MEAN CORPUSCULAR HGB CONC 34.8 g/dL (33.0-36.5); MEAN CORPUSCULAR VOLUME 103.3 FL (78-98); MEAN PLATELET VOLUME 8.5 FL (7.4-10.4); MONOCYTES % (AUTO) 8.8 % (2-12); NEUTROPHILS # (AUTO) 9.5 X10'3 (1.8-7.7); NEUTROPHILS % (AUTO) 83.8 % (42-75); PLATELET COUNT 105 X10'3 (140-440); RED BLOOD COUNT 3.17 X10'6 (4.70-6.10); RED CELL DISTRIBUTION WIDTH 14.6 % (11.5-14.5); WHITE BLOOD COUNT 11.3 X10'3 (4.5-11.0)
--- NOTE | 2021-11-13 06:59 | NUR ---
Problems reprioritized. Patient report given, questions answered & plan of care reviewed with Ria COHEN.
[2021-11-13 07:23] LABS: ALANINE AMINOTRANSFERASE 53 U/L (12-78); ALBUMIN 2.2 G/DL (3.4-5.0); ALBUMIN/GLOBULIN RATIO 0.6 (1.1-1.5); ALKALINE PHOSPHATASE 84 IU/L (46-116); ANION GAP 11 (8-16); ASPARTATE AMINO TRANSFERASE 32 U/L (10-37); BILIRUBIN,TOTAL 0.7 MG/DL (0.1-1.0); BLOOD UREA NITROGEN 34 MG/DL (7-18); BUN/CREATININE RATIO 30.9 (5.4-32.0); CALCIUM 8.1 MG/DL (8.5-10.1); CHLORIDE 107 MMOL/L (99-107); GLUCOSE 98 MG/DL (70-104); MAGNESIUM 1.9 MG/DL (1.5-2.4); POTASSIUM 4.1 MMOL/L (3.5-5.1); SODIUM 139 MMOL/L (135-145); TOTAL CARBON DIOXIDE 21.5 MMOL/L (24-32); TOTAL PROTEIN 5.8 G/DL (6.4-8.2); eGFR 63 ML/MIN
[2021-11-13] MEDS: K and/or MAG REPLACEMENT MC SCH ×2 (08:00→20:00)
[2021-11-13] MEDS: ranolazine 500mg SR tablet (Q12H) PO SCH ×2 (09:33→22:42)
[2021-11-13] MEDS: isosorbide mononitrate 30mg tab.SR.24H PO SCH ×2 (09:33→09:38)
[2021-11-13] MEDS: aspirin 81mg tab.chew PO SCH (09:33)
[2021-11-13] MEDS: clopidogrel 75mg tablet PO SCH ×2 (09:33→09:38)
[2021-11-13] MEDS: heparin, porcine 5000 units/ml vial SQ SCH ×2 (09:34→22:42)
[2021-11-13] MEDS: pantoprazole 40mg Tablet.DR PO SCH (09:34)
[2021-11-13] MEDS: LIPASE/PROTEASE/AMYLASE 10,500 units CAPSULE.DR PO SCH ×2 (09:35→17:30)
[2021-11-13] MEDS: sacubitril/valsartan 24mg-26mg tablet PO SCH ×2 (09:36→22:43)
[2021-11-13] MEDS: ESCITALOPRAM OXALATE 5 MG TABLET PO SCH (09:37)
[2021-11-13] MEDS: docusate sod 100mg capsule PO SCH ×2 (09:37→22:42)
[2021-11-13] MEDS: metoprolol tartrate 25mg tablet PO SCH ×2 (09:39→22:44)
[2021-11-13] MEDS: atorvastatin 20mg tablet PO SCH (09:42)
[2021-11-13] MEDS: HYDROcodone/acetaminophen 10/325mg tab PO PRN ×3 (10:04→22:41)
[2021-11-13 11:00] VITALS: BP 104/54
--- NOTE | 2021-11-13 13:08 | NUR ---
left message on home number to obtain answers for CT/contrast form, waiting for call back to complete form.
[2021-11-13] MEDS ORDERED: VANCOMYCIN LEVEL IV ONE (13:30)
[2021-11-13] MEDS ORDERED: iohexol 350MG/ML 100ml bottle IV ONE (14:57)
[2021-11-13 18:00] VITALS: BP 120/59
[2021-11-13] MEDS: VANCOmycin 1250MG/NS 250ml Bag 250 ML IV SCH (19:22)
[2021-11-13 22:00] VITALS: BP 130/57
[2021-11-14 02:00] VITALS: BP 126/60
--- NOTE | 2021-11-14 05:51 | NUR ---
AGREE WITH EQUIPMENT HIRE MANAGER PHYSICAL ASSESSMENT CHARTED.
[2021-11-14 06:00] VITALS: BP 134/60
[2021-11-14 07:32] LABS: BASOPHILS % (AUTO) 0.1 % (0-1); EOSINOPHILS % (AUTO) 0.1 % (0-6); HEMATOCRIT 32.3 % (42.0-52.0); LYMPHOCYTES # (AUTO) 0.9 X10'3 (1.1-4.8); LYMPHOCYTES % (AUTO) 9.3 % (21-51); MEAN CORPUSCULAR HEMOGLOBIN 35.9 PG (27.0-31.0); MEAN CORPUSCULAR HGB CONC 34.2 g/dL (33.0-36.5); MEAN CORPUSCULAR VOLUME 105.1 FL (78-98); MEAN PLATELET VOLUME 8.6 FL (7.4-10.4); MONOCYTES % (AUTO) 10.3 % (2-12); NEUTROPHILS # (AUTO) 8.1 X10'3 (1.8-7.7); NEUTROPHILS % (AUTO) 80.2 % (42-75); PLATELET COUNT 109 X10'3 (140-440); RED BLOOD COUNT 3.07 X10'6 (4.70-6.10); RED CELL DISTRIBUTION WIDTH 14.8 % (11.5-14.5)
[2021-11-14 07:35] LABS: ALANINE AMINOTRANSFERASE 47 U/L (12-78); ALBUMIN/GLOBULIN RATIO 0.5 (1.1-1.5); ALKALINE PHOSPHATASE 100 IU/L (46-116); ANION GAP 11 (8-16); ASPARTATE AMINO TRANSFERASE 24 U/L (10-37); BILIRUBIN,TOTAL 0.9 MG/DL (0.1-1.0); BLOOD UREA NITROGEN 39 MG/DL (7-18); CALCIUM 8.1 MG/DL (8.5-10.1); CHLORIDE 108 MMOL/L (99-107); CREATININE 1.26 MG/DL (0.60-1.10); GLUCOSE 98 MG/DL (70-104); POTASSIUM 4.5 MMOL/L (3.5-5.1); SODIUM 137 MMOL/L (135-145); TOTAL CARBON DIOXIDE 18.4 MMOL/L (24-32); TOTAL PROTEIN 5.7 G/DL (6.4-8.2); eGFR 54 ML/MIN
[2021-11-14] MEDS: K and/or MAG REPLACEMENT MC SCH ×2 (08:00→20:00)
[2021-11-14] MEDS: normal saline 1000ml 1,000 ML IV SCH ×2 (08:15→18:41)
[2021-11-14] MEDS ORDERED: magnesium Cl slow-release 64mg tablet PO ONE (09:00)
[2021-11-14] MEDS: atorvastatin 20mg tablet PO SCH (09:22)
[2021-11-14] MEDS: docusate sod 100mg capsule PO SCH ×2 (09:22→20:39)
[2021-11-14] MEDS: LIPASE/PROTEASE/AMYLASE 10,500 units CAPSULE.DR PO SCH ×2 (09:22→18:00)
[2021-11-14] MEDS: pantoprazole 40mg Tablet.DR PO SCH (09:23)
[2021-11-14] MEDS: aspirin 81mg tab.chew PO SCH (09:23)
[2021-11-14] MEDS: ranolazine 500mg SR tablet (Q12H) PO SCH ×2 (09:23→20:41)
[2021-11-14] MEDS: ESCITALOPRAM OXALATE 5 MG TABLET PO SCH (09:24)
[2021-11-14] MEDS: sacubitril/valsartan 24mg-26mg tablet PO SCH ×2 (09:24→20:40)
[2021-11-14] MEDS: HYDROcodone/acetaminophen 10/325mg tab PO PRN (09:24)
[2021-11-14] MEDS: heparin, porcine 5000 units/ml vial SQ SCH ×2 (09:26→20:40)
[2021-11-14] MEDS: metoprolol tartrate 12.5mg (1/2 tablet) PO SCH ×2 (09:52→20:40)
[2021-11-14 15:00] VITALS: BP 89/68
[2021-11-14] MEDS: VANCOmycin 1250MG/NS 250ml Bag 250 ML IV SCH (16:46)
[2021-11-14 18:00] VITALS: BP 93/65
[2021-11-14] MEDS: traZODone 50mg tablet PO PRN (20:41)
[2021-11-14] MEDS: furosemide 20 MG/2 ML vial IV SCH (20:42)
[2021-11-14 22:00] VITALS: BP 119/55
--- NOTE | 2021-11-14 22:46 | NUR ---
Patient in room PCU 3021. I have received report from NOEL Maynard and had the opportunity to ask questions and assume patient care.
[2021-11-15 02:00] VITALS: BP 130/44
[2021-11-15] MEDS: normal saline 1000ml 1,000 ML IV SCH ×2 (04:30→14:16)
[2021-11-15 06:09] LABS: BASOPHILS % (AUTO) 0.1 % (0-1); EOSINOPHILS % (AUTO) 0.3 % (0-6); HEMOGLOBIN 10.9 g/dl (14.0-17.9); LYMPHOCYTES # (AUTO) 0.9 X10'3 (1.1-4.8); LYMPHOCYTES % (AUTO) 8.3 % (21-51); MEAN CORPUSCULAR HEMOGLOBIN 35.6 PG (27.0-31.0); MEAN CORPUSCULAR HGB CONC 33.2 g/dL (33.0-36.5); MEAN CORPUSCULAR VOLUME 107.3 FL (78-98); MEAN PLATELET VOLUME 8.9 FL (7.4-10.4); MONOCYTES # (AUTO) 1.1 X10'3 (0-0.9); MONOCYTES % (AUTO) 10.7 % (2-12); NEUTROPHILS # (AUTO) 8.3 X10'3 (1.8-7.7); NEUTROPHILS % (AUTO) 80.6 % (42-75); PLATELET COUNT 117 X10'3 (140-440); RED BLOOD COUNT 3.07 X10'6 (4.70-6.10); RED CELL DISTRIBUTION WIDTH 15.3 % (11.5-14.5); WHITE BLOOD COUNT 10.3 X10'3 (4.5-11.0)
[2021-11-15] MEDS: K and/or MAG REPLACEMENT MC SCH ×2 (08:00→20:00)
[2021-11-15] MEDS: metoprolol tartrate 12.5mg (1/2 tablet) PO SCH ×2 (08:00→20:26)
[2021-11-15] MEDS: sacubitril/valsartan 24mg-26mg tablet PO SCH ×2 (08:00→20:00)
[2021-11-15] MEDS: furosemide 20 MG/2 ML vial IV SCH ×2 (08:00→21:28)
[2021-11-15] MEDS: heparin, porcine 5000 units/ml vial SQ SCH ×2 (08:19→20:28)
[2021-11-15] MEDS: atorvastatin 20mg tablet PO SCH (08:20)
[2021-11-15] MEDS: LIPASE/PROTEASE/AMYLASE 10,500 units CAPSULE.DR PO SCH ×2 (08:20→17:54)
[2021-11-15] MEDS: aspirin 81mg tab.chew PO SCH (08:20)
[2021-11-15] MEDS: clopidogrel 75mg tablet PO SCH (08:20)
[2021-11-15] MEDS: isosorbide mononitrate 30mg tab.SR.24H PO SCH (08:20)
[2021-11-15] MEDS: ranolazine 500mg SR tablet (Q12H) PO SCH ×2 (08:20→20:23)
[2021-11-15] MEDS: ESCITALOPRAM OXALATE 5 MG TABLET PO SCH (08:20)
[2021-11-15] MEDS: docusate sod 100mg capsule PO SCH ×2 (08:21→20:28)
[2021-11-15] MEDS: pantoprazole 40mg Tablet.DR PO SCH (08:21)
--- NOTE | 2021-11-15 11:01 | NUR ---
Pt had episode of c/o chest pain; alerted staff about c/o cp. RN and resource RN came to bedside for assessment. Vitals taken; SBP low in 80s, O2 sat mid to high 90s, HR 70-80s with multiple PACs. pt AOx1 at baseline for last few days. Pt asked to express type of pain he was feeling, pt was unable to describe without assistance. Pt repeated all types of pain presented as options. Pt then asked to point to where the pain was, and initially pointed to L groin site. When staff pointed to Left or right Chest and asked if it hurt here or here; Pt agreed. When asked if his belly hurt, pt agreed. EKG done and recorded noting SR w/ PACs, and prolonged QT. Rusu at nursing station and verbally updated on pt status. Will continue to monitor on tele, and treat as ordered.
--- NOTE | 2021-11-15 11:06 | NUR ---
Pt c/o chest pain. EKG performed, no ST elev or depression. Pt was not able to pinpoint where the pain was. When asked left chest, he said yes. When asked right chest, he said yes. When asked belly pain, he said yes. Then he proceeds to point at his scrotum when asked to point where his pain is.
--- NOTE | 2021-11-15 11:09 | NUR ---
Per verna Rascon to hold all BP meds d/t low blood pressure.
[2021-11-15 11:40] LABS: ALANINE AMINOTRANSFERASE 42 U/L (12-78); ALBUMIN 1.8 G/DL (3.4-5.0); ALBUMIN/GLOBULIN RATIO 0.5 (1.1-1.5); ALKALINE PHOSPHATASE 131 IU/L (46-116); ANION GAP 11 (8-16); ASPARTATE AMINO TRANSFERASE 22 U/L (10-37); BILIRUBIN,TOTAL 1.1 MG/DL (0.1-1.0); BLOOD UREA NITROGEN 51 MG/DL (7-18); CALCIUM 8.1 MG/DL (8.5-10.1); CHLORIDE 108 MMOL/L (99-107); CREATININE 1.76 MG/DL (0.60-1.10); GLUCOSE 109 MG/DL (70-104); POTASSIUM 4.1 MMOL/L (3.5-5.1); SODIUM 138 MMOL/L (135-145); TOTAL CARBON DIOXIDE 19.2 MMOL/L (24-32); TOTAL PROTEIN 5.6 G/DL (6.4-8.2); eGFR 37 ML/MIN
--- NOTE | 2021-11-15 11:51 | NUR ---
F/u 11/15: Pt PO ~50% avg heart healthy now SB6 meals partially meeting needs. AOx1/confused w/ increased ALOC and cognitive impairment per MD note. RD paged MD regarding removal of heart healthy restriction given age/PO trends. RD recommends ensure high protein TIDWM and smoothie WL for further protein/kcal needs; dietary and MD notified. Noted MCV 107.3 this AM w/ elevated MCV this LOS per EMR; DARLING d/w RN regarding MVI upplementation if MD agreeable. First BM this AM following prior 5 days constipation receiving routine colace. Prior constipation and ALOC likely impacting PO. Will continue to monitor for further nutrition intervention needs. Rec: 1. liberalize to regular/SB6 diet given poor PO; consider COT ASSEMBLER BSS if PO safety concerns w/ ALOC 2. smoothies WL; Ensure High Protein TIDWM pending MD verification in EMR 3. MVI supplementation per MD discretion; MCV 107.3 per EMR 4. routine bowel care 5. scaled wt this admit; subsequent weekly wts Addendum: 11/15/21 at [address] Amended: Links added.
--- NOTE | 2021-11-15 12:33 | NUR ---
paged regarding Nutrition phone call suggesting pt be on multivitamin d/t low po intake. "RM 3021: Nutrition/Piling Setter called to suggest PT be on Multivitamin d/t low PO intake. Thx. Maynard"
[2021-11-15] MEDS: lactose-reduced food (Ensure High Protein) 237ml bottle PO SCH (13:00)
[2021-11-15] MEDS: VANCOmycin 1250MG/NS 250ml Bag 250 ML IV SCH (14:52)
[2021-11-15 18:00] VITALS: BP 101/81
--- NOTE | 2021-11-15 18:30 | NUR ---
Patient in room PCU 3021. I have received report from constantino and had the opportunity to ask questions and assume patient care.
[2021-11-15 22:00] VITALS: BP 92/52
[2021-11-16] VITALS (7 sets, daily range): BP systolic 80–156; BP diastolic 43–124
[2021-11-16] MEDS: normal saline 1000ml 1,000 ML IV SCH ×3 (03:20→22:00)
--- NOTE | 2021-11-16 06:24 | NUR ---
Problems reprioritized. Patient report given, questions answered & plan of care reviewed with azul.
--- NOTE | 2021-11-16 06:48 | NUR ---
Patient in room PCU 3021. I have received report from JET NIX and had the opportunity to ask questions and assume patient care.
[2021-11-16] MEDS: docusate sod 100mg capsule PO SCH ×2 (07:01→19:45)
[2021-11-16] MEDS: K and/or MAG REPLACEMENT MC SCH ×2 (08:00→20:00)
[2021-11-16] MEDS: HYDROcodone/acetaminophen 10/325mg tab PO PRN (08:15)
[2021-11-16] MEDS: sacubitril/valsartan 24mg-26mg tablet PO SCH ×2 (08:19→19:42)
[2021-11-16] MEDS: aspirin 81mg tab.chew PO SCH (08:19)
[2021-11-16] MEDS: clopidogrel 75mg tablet PO SCH (08:20)
[2021-11-16] MEDS: metoprolol tartrate 12.5mg (1/2 tablet) PO SCH ×2 (08:20→19:48)
[2021-11-16] MEDS: pantoprazole 40mg Tablet.DR PO SCH (08:20)
[2021-11-16] MEDS: atorvastatin 20mg tablet PO SCH (08:20)
[2021-11-16] MEDS: isosorbide mononitrate 30mg tab.SR.24H PO SCH (08:20)
[2021-11-16] MEDS: ranolazine 500mg SR tablet (Q12H) PO SCH ×2 (08:20→19:48)
[2021-11-16] MEDS: heparin, porcine 5000 units/ml vial SQ SCH ×2 (08:21→19:49)
[2021-11-16] MEDS: LIPASE/PROTEASE/AMYLASE 10,500 units CAPSULE.DR PO SCH ×2 (08:21→18:01)
[2021-11-16] MEDS: ESCITALOPRAM OXALATE 5 MG TABLET PO SCH (08:21)
[2021-11-16 09:29] LABS: BASOPHILS % (AUTO) 0.1 % (0-1); EOSINOPHILS % (AUTO) 0.2 % (0-6); HEMATOCRIT 28.8 % (42.0-52.0); HEMOGLOBIN 10.1 g/dl (14.0-17.9); LYMPHOCYTES # (AUTO) 0.6 X10'3 (1.1-4.8); LYMPHOCYTES % (AUTO) 6.2 % (21-51); MEAN CORPUSCULAR HEMOGLOBIN 36.3 PG (27.0-31.0); MEAN CORPUSCULAR HGB CONC 34.9 g/dL (33.0-36.5); MEAN CORPUSCULAR VOLUME 104.1 FL (78-98); MEAN PLATELET VOLUME 8.2 FL (7.4-10.4); MONOCYTES # (AUTO) 0.9 X10'3 (0-0.9); MONOCYTES % (AUTO) 10.4 % (2-12); NEUTROPHILS # (AUTO) 7.5 X10'3 (1.8-7.7); NEUTROPHILS % (AUTO) 83.1 % (42-75); PLATELET COUNT 170 X10'3 (140-440); RED BLOOD COUNT 2.77 X10'6 (4.70-6.10); RED CELL DISTRIBUTION WIDTH 14.6 % (11.5-14.5); WHITE BLOOD COUNT 9.1 X10'3 (4.5-11.0)
[2021-11-16 10:06] LABS: ALBUMIN 1.9 G/DL (3.4-5.0); ANION GAP 12 (8-16); BLOOD UREA NITROGEN 53 MG/DL (7-18); CHLORIDE 108 MMOL/L (99-107); CREATININE 1.71 MG/DL (0.60-1.10); GLUCOSE 113 MG/DL (70-104); POTASSIUM 4.2 MMOL/L (3.5-5.1); SODIUM 139 MMOL/L (135-145); TOTAL CARBON DIOXIDE 19.3 MMOL/L (24-32); eGFR 38 ML/MIN
[2021-11-16] MEDS: furosemide 20 MG/2 ML vial IV SCH ×2 (10:44→20:57)
--- NOTE | 2021-11-16 11:12 | NUR ---
PAGED DR GARDNER RE: PAGER ID: [phone] MESSAGE: CRYSTAL FRANCES. MANUAL BP 80/44. LASIX HELD, IV FLUIDS STARTED. MISAEL [id number] TELE
[2021-11-16] MEDS ORDERED: VANCOMYCIN LEVEL IV ONE (14:30)
--- NOTE | 2021-11-16 15:15 | NUR ---
PAGED DR GARDNER RE: promotional table spacer PAGER ID: [phone] MESSAGE: CRYSTAL FRANCES. CR[facility]ICAL [facility] TROUGH 21.0. WILL NOTIFY PHARMACY. MISAEL [phone] TELE
[2021-11-16] MEDS: vancomycin/NS 1 GM ADD-VANTAGE 250 ML IV SCH (18:00)
--- NOTE | 2021-11-16 18:13 | NUR ---
Problems reprioritized. Patient report given, questions answered & plan of care reviewed with JET NIX.
--- NOTE | 2021-11-16 18:30 | NUR ---
Patient in room PCU 3021. I have received report from azul and had the opportunity to ask questions and assume patient care.
[2021-11-17] VITALS (7 sets, daily range): BP systolic 92–143; BP diastolic 51–62
[2021-11-17] MEDS: normal saline 1000ml 1,000 ML IV SCH ×2 (06:15→17:11)
--- NOTE | 2021-11-17 06:19 | NUR ---
Problems reprioritized. Patient report given, questions answered & plan of care reviewed with azul.
[2021-11-17] MEDS: furosemide 20 MG/2 ML vial IV SCH ×2 (06:54→20:53)
[2021-11-17] MEDS: docusate sod 100mg capsule PO SCH ×2 (06:54→19:50)
[2021-11-17] MEDS: aspirin 81mg tab.chew PO SCH (06:54)
[2021-11-17] MEDS: heparin, porcine 5000 units/ml vial SQ SCH ×2 (06:55→19:47)
[2021-11-17] MEDS: LIPASE/PROTEASE/AMYLASE 10,500 units CAPSULE.DR PO SCH ×2 (07:30→17:30)
[2021-11-17] MEDS: ranolazine 500mg SR tablet (Q12H) PO SCH ×2 (08:00→19:47)
[2021-11-17] MEDS: sacubitril/valsartan 24mg-26mg tablet PO SCH ×2 (08:00→19:47)
[2021-11-17] MEDS: isosorbide mononitrate 30mg tab.SR.24H PO SCH (08:00)
[2021-11-17] MEDS: clopidogrel 75mg tablet PO SCH (08:00)
[2021-11-17] MEDS: atorvastatin 20mg tablet PO SCH (08:00)
[2021-11-17] MEDS: K and/or MAG REPLACEMENT MC SCH ×2 (08:00→20:00)
[2021-11-17] MEDS: metoprolol tartrate 12.5mg (1/2 tablet) PO SCH ×2 (08:00→19:49)
[2021-11-17] MEDS: ESCITALOPRAM OXALATE 5 MG TABLET PO SCH (08:00)
[2021-11-17] MEDS: pantoprazole 40mg Tablet.DR PO SCH (08:00)
[2021-11-17 08:35] LABS: ALBUMIN 1.9 G/DL (3.4-5.0); ANION GAP 13 (8-16); BLOOD UREA NITROGEN 49 MG/DL (7-18); BUN/CREATININE RATIO 32.5 (5.4-32.0); CALCIUM 8.2 MG/DL (8.5-10.1); CHLORIDE 112 MMOL/L (99-107); CREATININE 1.51 MG/DL (0.60-1.10); GLUCOSE 105 MG/DL (70-104); POTASSIUM 4.5 MMOL/L (3.5-5.1); SODIUM 142 MMOL/L (135-145); TOTAL CARBON DIOXIDE 16.8 MMOL/L (24-32); eGFR 44 ML/MIN
--- NOTE | 2021-11-17 08:36 | NUR ---
PAGED DR GARDNER RE: PAGER ID: [phone] MESSAGE: CRYSTAL FRANCES. AT BEDSIDE. SAYS SHE CANT STAY LONG. MISAEL [phone] TELE
[2021-11-17] MEDS ORDERED: LIDOcaine 1%/PF 5ML 10 MG/ML VIAL ONE (10:10)
[2021-11-17] MEDS ORDERED: iohexol 350MG/ML 100ml bottle IV ONE ×2 (10:10→12:29)
[2021-11-17] MEDS ORDERED: diphenhydrAMINE 50 mg/ml inj ONE (10:10)
[2021-11-17] MEDS ORDERED: heparin 1,000 UNITS/NS 500ml 500 ML ONE (10:11)
--- NOTE | 2021-11-17 10:48 | NUR ---
HOLD ALL BP MEDS PER MD
[2021-11-17] MEDS ORDERED: fentaNYL/PF 50MCG/1 ML 2ML syringe ONE (11:08)
[2021-11-17] MEDS ORDERED: heparin 1,000unit/ml 10ml vial 10 ML ONE (11:46)
[2021-11-17] MEDS: vancomycin/NS 1 GM ADD-VANTAGE 250 ML IV SCH (17:11)
--- NOTE | 2021-11-17 18:16 | NUR ---
Problems reprioritized. Patient report given, questions answered & plan of care reviewed with JET COHEN.
--- NOTE | 2021-11-17 18:30 | NUR ---
Patient in room PCU 3021. I have received report from azul and had the opportunity to ask questions and assume patient care.
[2021-11-17] MEDS: HYDROcodone/acetaminophen 10/325mg tab PO PRN (20:50)
[2021-11-17] MEDS: traZODone 50mg tablet PO PRN (22:58)
[2021-11-18] MEDS: acetaminophen 325mg tablet PO PRN (00:59)
--- NOTE | 2021-11-18 06:10 | NUR ---
REVIEWED BREAD RACKER ASSESSMENT AND IN AGREEMENT.
--- NOTE | 2021-11-18 06:20 | NUR ---
Problems reprioritized. Patient report given, questions answered & plan of care reviewed with channing.
[2021-11-18 06:50] LABS: ALBUMIN 1.8 G/DL (3.4-5.0); ANION GAP 14 (8-16); BLOOD UREA NITROGEN 45 MG/DL (7-18); BUN/CREATININE RATIO 31.5 (5.4-32.0); CHLORIDE 112 MMOL/L (99-107); CREATININE 1.43 MG/DL (0.60-1.10); GLUCOSE 91 MG/DL (70-104); MEAN CORPUSCULAR HEMOGLOBIN 35.6 PG (27.0-31.0); MEAN PLATELET VOLUME 8.1 FL (7.4-10.4); SODIUM 143 MMOL/L (135-145); TOTAL CARBON DIOXIDE 16.9 MMOL/L (24-32); eGFR 47 ML/MIN
[2021-11-18 06:53] LABS: BASOPHILS % (AUTO) 0.1 % (0-1); EOSINOPHILS % (AUTO) 0.1 % (0-6); HEMATOCRIT 29.6 % (42.0-52.0); LYMPHOCYTES % (AUTO) 12.8 % (21-51); MEAN CORPUSCULAR HGB CONC 33.7 g/dL (33.0-36.5); MEAN CORPUSCULAR VOLUME 105.7 FL (78-98); MONOCYTES # (AUTO) 0.8 X10'3 (0-0.9); MONOCYTES % (AUTO) 10.2 % (2-12); NEUTROPHILS # (AUTO) 5.8 X10'3 (1.8-7.7); NEUTROPHILS % (AUTO) 76.8 % (42-75); PLATELET COUNT 215 X10'3 (140-440); WHITE BLOOD COUNT 7.5 X10'3 (4.5-11.0)
[2021-11-18 07:30] VITALS: BP 136/66
[2021-11-18] MEDS: K and/or MAG REPLACEMENT MC SCH ×2 (08:00→20:00)
[2021-11-18] MEDS: normal saline 1000ml 1,000 ML IV SCH ×3 (08:02→14:25)
[2021-11-18] MEDS: LIPASE/PROTEASE/AMYLASE 10,500 units CAPSULE.DR PO SCH ×2 (08:05→17:45)
[2021-11-18] MEDS: aspirin 81mg tab.chew PO SCH (08:06)
[2021-11-18] MEDS: docusate sod 100mg capsule PO SCH ×2 (08:06→19:43)
[2021-11-18] MEDS: ESCITALOPRAM OXALATE 5 MG TABLET PO SCH (08:07)
[2021-11-18] MEDS: clopidogrel 75mg tablet PO SCH (08:07)
[2021-11-18] MEDS: furosemide 20 MG/2 ML vial IV SCH ×2 (08:07→19:43)
[2021-11-18] MEDS: heparin, porcine 5000 units/ml vial SQ SCH ×2 (08:07→19:44)
[2021-11-18] MEDS: atorvastatin 20mg tablet PO SCH (08:07)
[2021-11-18] MEDS: ranolazine 500mg SR tablet (Q12H) PO SCH ×2 (08:07→19:44)
[2021-11-18] MEDS: pantoprazole 40mg Tablet.DR PO SCH (08:07)
[2021-11-18] MEDS: isosorbide mononitrate 30mg tab.SR.24H PO SCH (08:07)
[2021-11-18] MEDS: sacubitril/valsartan 24mg-26mg tablet PO SCH ×2 (08:13→19:50)
[2021-11-18] MEDS: metoprolol tartrate 12.5mg (1/2 tablet) PO SCH ×2 (08:13→19:43)
--- NOTE | 2021-11-18 10:24 | NUR ---
Reassessment: Patient's diet has been liberalized to regular though texture has been downgraded to MM5. PO intake is fair in view of geriatric age with average 45% PO intake of five most recent meals, however only meeting average 57% estimated energy needs and 42% estimated protein needs. ONS still pending physician approval in EMR. See additional nutrition interventions below that were d/w dietary in hopes of optimizing PO intake. Recommend BSS with ST to determine most appropriate texture modification as pt continues to be A/O x 1 and confused per EMR. LBM 11/17, receiving routine bowel care. Will continue to follow closely and monitor need for further nutrition intervention. Recommendations: 1. Continue regular diet given poor PO intake and geriatric age; texture modification per ST pending BSS 2. Alternate yogurt and cottage cheese WB, smoothies WL, shake WS 3. Ensure High Protein TIDWM pending physician verification in EMR 4. MVI supplementation per MD discretion; MCV 105.7 per EMR 5. Routine bowel care 6. Scaled wt this admit; subsequent weekly wts Addendum: 11/18/21 at [address] Amended: Links added.
[2021-11-18 11:00] VITALS: BP 116/54
[2021-11-18] MEDS: HYDROcodone/acetaminophen 5mg/325mg tablet PO PRN (14:22)
--- NOTE | 2021-11-18 14:36 | NUR ---
PAGER ID: [phone] MESSAGE: [phone] Kali Martinez: both your note and Dr. Daniel note mention getting a line in the patient. would you like me to put the order in? thanks! oli [phone]
--- NOTE | 2021-11-18 14:58 | NUR ---
Page sent to PICC RN.. [phone] Kali Martinez: Midline order is now in whenever you get a chance. thanks :) oli [phone]
[2021-11-18] MEDS: vancomycin/NS 1 GM ADD-VANTAGE 250 ML IV SCH (16:07)
[2021-11-18 18:00] VITALS: BP 91/60
--- NOTE | 2021-11-18 18:43 | NUR ---
Problems reprioritized. Patient report given, questions answered & plan of care reviewed with Kayla and Rudi Maynard.
[2021-11-18 19:41] VITALS: BP 138/43
[2021-11-18 23:00] VITALS: BP 100/52
[2021-11-19 02:00] VITALS: BP 100/56
--- NOTE | 2021-11-19 06:48 | NUR ---
Problems reprioritized. Patient report given, questions answered & plan of care reviewed with NOEL Thayer. Addendum: 11/19/21 at 0649 by Kayla Wall RN Gave report to NOEL Delgado RN.
[2021-11-19 07:30] VITALS: BP 91/67
[2021-11-19] MEDS: K and/or MAG REPLACEMENT MC SCH ×2 (08:00→20:00)
[2021-11-19] MEDS: furosemide 20 MG/2 ML vial IV SCH ×2 (08:00→19:41)
[2021-11-19] MEDS: metoprolol tartrate 12.5mg (1/2 tablet) PO SCH ×2 (08:00→19:47)
[2021-11-19] MEDS: sacubitril/valsartan 24mg-26mg tablet PO SCH ×2 (08:00→19:42)
[2021-11-19] MEDS: LIPASE/PROTEASE/AMYLASE 10,500 units CAPSULE.DR PO SCH ×2 (08:07→17:39)
[2021-11-19] MEDS: ESCITALOPRAM OXALATE 5 MG TABLET PO SCH (08:07)
[2021-11-19] MEDS: pantoprazole 40mg Tablet.DR PO SCH (08:08)
[2021-11-19] MEDS: heparin, porcine 5000 units/ml vial SQ SCH ×2 (08:09→20:00)
[2021-11-19] MEDS: clopidogrel 75mg tablet PO SCH (08:09)
[2021-11-19] MEDS: isosorbide mononitrate 30mg tab.SR.24H PO SCH (08:09)
[2021-11-19] MEDS: ranolazine 500mg SR tablet (Q12H) PO SCH ×2 (08:09→19:42)
[2021-11-19] MEDS: aspirin 81mg tab.chew PO SCH (08:09)
[2021-11-19] MEDS: docusate sod 100mg capsule PO SCH ×2 (08:09→19:46)
[2021-11-19] MEDS: atorvastatin 20mg tablet PO SCH (08:09)
[2021-11-19] MEDS: normal saline 1000ml 1,000 ML IV SCH (08:15)
[2021-11-19 11:19] VITALS: BP 97/57
--- NOTE | 2021-11-19 11:29 | NUR ---
PAGER ID: [phone] MESSAGE: [phone] Kali Martinez: is at bedside requesting to speak with you whenever you get a chance. thank you!
[2021-11-19] MEDS: ipratropium/albuterol 3ml nebule NEB PRN (13:43)
[2021-11-19] MEDS ORDERED: furosemide 20MG tablet PO ONE (15:05)
[2021-11-19] MEDS: vancomycin/NS 1 GM ADD-VANTAGE 250 ML IV SCH (15:08)
[2021-11-19 15:24] VITALS: BP 107/67
[2021-11-19] MEDS ORDERED: VANCOMYCIN LEVEL IV ONE (15:30)
--- NOTE | 2021-11-19 16:13 | NUR ---
PAGER ID: [phone] MESSAGE: [phone] Kali Martinez: CARRIE hanna trough 22.1, pharmacy aware and has adjusted the dose. thank you! Addendum: 11/19/21 at 1613 by Sandy Young RN Amended: Links added.
--- NOTE | 2021-11-19 18:41 | NUR ---
Problems reprioritized. Patient report given, questions answered & plan of care reviewed with NOEL Trevino.
[2021-11-19] MEDS: temazepam 15mg capsule PO PRN (19:41)
[2021-11-19] MEDS: HYDROcodone/acetaminophen 10/325mg tab PO PRN (19:45)
[2021-11-19] MEDS ORDERED: QUEtiapine 25mg tablet PO SCH (21:00)
[2021-11-20] MEDS: LIPASE/PROTEASE/AMYLASE 10,500 units CAPSULE.DR PO SCH ×2 (07:30→16:08)
[2021-11-20] MEDS: metoprolol tartrate 12.5mg (1/2 tablet) PO SCH ×2 (08:00→20:27)
[2021-11-20] MEDS: sacubitril/valsartan 24mg-26mg tablet PO SCH ×2 (08:00→20:27)
[2021-11-20] MEDS: clopidogrel 75mg tablet PO SCH (08:00)
[2021-11-20] MEDS: pantoprazole 40mg Tablet.DR PO SCH (08:00)
[2021-11-20] MEDS: aspirin 81mg tab.chew PO SCH (08:00)
[2021-11-20] MEDS: furosemide 20 MG/2 ML vial IV SCH ×2 (08:00→20:27)
[2021-11-20] MEDS: furosemide 20MG tablet PO SCH (08:00)
[2021-11-20] MEDS: isosorbide mononitrate 30mg tab.SR.24H PO SCH (08:00)
[2021-11-20] MEDS: ranolazine 500mg SR tablet (Q12H) PO SCH ×2 (08:00→20:27)
[2021-11-20] MEDS: K and/or MAG REPLACEMENT MC SCH ×2 (08:00→20:32)
[2021-11-20] MEDS: atorvastatin 20mg tablet PO SCH (08:00)
[2021-11-20] MEDS: docusate sod 100mg capsule PO SCH ×2 (08:00→20:27)
[2021-11-20] MEDS: ESCITALOPRAM OXALATE 5 MG TABLET PO SCH (08:00)
[2021-11-20] MEDS: heparin, porcine 5000 units/ml vial SQ SCH ×2 (08:53→20:28)
[2021-11-20 09:02] LABS: ABG BASE EXCESS -5.7 mmol/L (-2.0-2.0); ABG HCO3 17.6 mmol/L (22.0-26.0); ABG OXYGEN SATURATION 94.9 % (94-97); ABG PCO2 (T) 27.8 mmHg (35.0-48.0); ABG PO2 (T) 78.9 mmHg (75.0-100.0); ALLEN'S TEST POSITIVE; FCOHb 0.3 % (0.0-3.9); FMetHb 0.3 % (0.0-1.5); FO2Hb 94.3 % (94-97); TOTAL HEMOGLOBIN 10.4 G/dl (14.0-18.0)
[2021-11-20 09:08] VITALS: BP 96/72
[2021-11-20] MEDS: VANCOMYCIN 750MG IV in NS 250 ML IV SCH (16:00)
[2021-11-20 16:06] VITALS: BP 96/60
--- NOTE | 2021-11-20 18:36 | NUR ---
Problems reprioritized. Patient report given, questions answered & plan of care reviewed with NOEL Trevino.
[2021-11-20] MEDS: HYDROcodone/acetaminophen 5mg/325mg tablet PO PRN (20:26)
[2021-11-20] MEDS: QUEtiapine 25mg tablet PO SCH (20:31)
[2021-11-20 22:00] VITALS: BP 135/55
[2021-11-21 02:42] LABS: BASOPHILS % (AUTO) 0.5 % (0-1); EOSINOPHILS % (AUTO) 0.1 % (0-6); HEMATOCRIT 36.6 % (42.0-52.0); HEMOGLOBIN 12.3 g/dl (14.0-17.9); LYMPHOCYTES # (AUTO) 0.6 X10'3 (1.1-4.8); LYMPHOCYTES % (AUTO) 7.5 % (21-51); MEAN CORPUSCULAR HEMOGLOBIN 35.4 PG (27.0-31.0); MEAN CORPUSCULAR HGB CONC 33.7 g/dL (33.0-36.5); MEAN CORPUSCULAR VOLUME 105.1 FL (78-98); MEAN PLATELET VOLUME 8.3 FL (7.4-10.4); MONOCYTES # (AUTO) 0.5 X10'3 (0-0.9); MONOCYTES % (AUTO) 7.1 % (2-12); NEUTROPHILS # (AUTO) 6.5 X10'3 (1.8-7.7); NEUTROPHILS % (AUTO) 84.8 % (42-75); PLATELET COUNT 201 X10'3 (140-440); RED BLOOD COUNT 3.48 X10'6 (4.70-6.10); RED CELL DISTRIBUTION WIDTH 14.8 % (11.5-14.5); WHITE BLOOD COUNT 7.7 X10'3 (4.5-11.0)
[2021-11-21 04:26] VITALS: BP 131/68
[2021-11-21 06:00] VITALS: BP 133/67
[2021-11-21] MEDS: K and/or MAG REPLACEMENT MC SCH ×2 (08:00→19:23)
[2021-11-21] MEDS: furosemide 20MG tablet PO SCH (08:00)
--- NOTE | 2021-11-21 08:35 | NUR ---
Reassessment; Pt has been advanced to EC7 diet per WOUND NURSE recs, though pt continues w/ poor PO intake, avg 25% x 10 meals not meeting needs. Documented to be A&O x 3 and confused, receiving minimal assistance w/ meals. Per MD note, pt's states that he does not like taste of Ensure and she has brought different brand from home, though pt did not drink much of it. Megace has been started. If PO does not improve pt may benefit from NGTF if within POC. LBM 11/19. Will continue to monitor. Recommendations: 1. Continue EC7 diet per WOUND NURSE recs; assist w/ meals 2. Alternate yogurt and cottage cheese WB, smoothies WL, shake WS 3. Ensure High Protein TIDWM pending physician verification; pt apparently does not like the taste 4. MVI supplementation per MD discretion; MCV 105.7 per EMR 5. Routine bowel care 6. Scaled wt this admit; subsequent weekly wts 7. Initiate nutrition support if PO does not improve and within POC Addendum: 11/21/21 at [address] Amended: Links added.
[2021-11-21] MEDS: megestrol acetate 20mg tablet PO SCH (09:12)
[2021-11-21] MEDS: docusate sod 100mg capsule PO SCH ×2 (09:13→19:56)
[2021-11-21] MEDS: heparin, porcine 5000 units/ml vial SQ SCH ×2 (09:13→19:56)
[2021-11-21] MEDS: pantoprazole 40mg Tablet.DR PO SCH (09:13)
[2021-11-21] MEDS: clopidogrel 75mg tablet PO SCH (09:13)
[2021-11-21] MEDS: furosemide 20 MG/2 ML vial IV SCH ×2 (09:13→19:55)
[2021-11-21] MEDS: metoprolol tartrate 12.5mg (1/2 tablet) PO SCH ×2 (09:14→19:57)
[2021-11-21] MEDS: ranolazine 500mg SR tablet (Q12H) PO SCH ×2 (09:14→19:55)
[2021-11-21] MEDS: sacubitril/valsartan 24mg-26mg tablet PO SCH ×2 (09:14→19:55)
[2021-11-21] MEDS: allopurinol 300 MG tablet PO SCH (09:14)
[2021-11-21] MEDS: aspirin 81mg tab.chew PO SCH (09:14)
[2021-11-21] MEDS: atorvastatin 20mg tablet PO SCH (09:14)
[2021-11-21] MEDS: isosorbide mononitrate 30mg tab.SR.24H PO SCH (09:14)
[2021-11-21] MEDS: LIPASE/PROTEASE/AMYLASE 10,500 units CAPSULE.DR PO SCH ×2 (09:15→17:16)
[2021-11-21] MEDS: ESCITALOPRAM OXALATE 5 MG TABLET PO SCH (09:15)
[2021-11-21 11:00] VITALS: BP 123/63
[2021-11-21] MEDS: HYDROcodone/acetaminophen 10/325mg tab PO PRN (13:42)
[2021-11-21 15:00] VITALS: BP 119/54
[2021-11-21] MEDS: haloperidol lactate 5mg/ml inj IM PRN (16:48)
[2021-11-21] MEDS: VANCOMYCIN 750MG IV in NS 250 ML IV SCH (17:16)
[2021-11-21 18:00] VITALS: BP 133/67
--- NOTE | 2021-11-21 18:45 | NUR ---
Problems reprioritized. Patient report given, questions answered & plan of care reviewed with Yumiko. Pt's and son came to visit pt today. Pt cooperative while family in room, however became agitated this afternoon wanting to get out of bed. Paged MD Castellon for PRN orders, Haldol ordered received and administered. Pt's son insistent on ointment needing to be applied to buttock, reviewed wound care orders- no ointment recommended, only border foam. Educated pt and son on wound care recommendations.
[2021-11-21] MEDS: QUEtiapine 25mg tablet PO SCH (19:56)
[2021-11-21 22:00] VITALS: BP 128/60
[2021-11-22 06:00] VITALS: BP 130/66
[2021-11-22] MEDS: K and/or MAG REPLACEMENT MC SCH ×2 (08:00→19:18)
[2021-11-22] MEDS: heparin, porcine 5000 units/ml vial SQ SCH ×2 (09:19→21:02)
[2021-11-22] MEDS: aspirin 81mg tab.chew PO SCH (09:20)
[2021-11-22] MEDS: ranolazine 500mg SR tablet (Q12H) PO SCH ×2 (09:20→21:46)
[2021-11-22] MEDS: ESCITALOPRAM OXALATE 5 MG TABLET PO SCH (09:20)
[2021-11-22] MEDS: furosemide 20 MG/2 ML vial IV SCH ×2 (09:20→20:00)
[2021-11-22] MEDS: atorvastatin 20mg tablet PO SCH (09:21)
[2021-11-22] MEDS: sacubitril/valsartan 24mg-26mg tablet PO SCH ×2 (09:21→21:03)
[2021-11-22] MEDS: megestrol acetate 20mg tablet PO SCH (09:21)
[2021-11-22] MEDS: isosorbide mononitrate 30mg tab.SR.24H PO SCH (09:21)
[2021-11-22] MEDS: allopurinol 300 MG tablet PO SCH (09:21)
[2021-11-22] MEDS: docusate sod 100mg capsule PO SCH ×2 (09:21→21:03)
[2021-11-22] MEDS: LIPASE/PROTEASE/AMYLASE 10,500 units CAPSULE.DR PO SCH ×2 (09:22→16:57)
[2021-11-22] MEDS: clopidogrel 75mg tablet PO SCH (09:22)
[2021-11-22] MEDS: metoprolol tartrate 12.5mg (1/2 tablet) PO SCH ×2 (09:22→20:00)
[2021-11-22] MEDS: pantoprazole 40mg Tablet.DR PO SCH (09:22)
[2021-11-22 09:42] LABS: BASOPHILS % (AUTO) 0.3 % (0-1); EOSINOPHILS % (AUTO) 0.3 % (0-6); HEMATOCRIT 30.9 % (42.0-52.0); HEMOGLOBIN 10.6 g/dl (14.0-17.9); LYMPHOCYTES # (AUTO) 0.8 X10'3 (1.1-4.8); LYMPHOCYTES % (AUTO) 7.7 % (21-51); MEAN CORPUSCULAR HEMOGLOBIN 36.1 PG (27.0-31.0); MEAN CORPUSCULAR HGB CONC 34.1 g/dL (33.0-36.5); MEAN CORPUSCULAR VOLUME 105.6 FL (78-98); MEAN PLATELET VOLUME 7.8 FL (7.4-10.4); MONOCYTES # (AUTO) 0.8 X10'3 (0-0.9); MONOCYTES % (AUTO) 8.5 % (2-12); NEUTROPHILS # (AUTO) 8.2 X10'3 (1.8-7.7); NEUTROPHILS % (AUTO) 83.2 % (42-75); PLATELET COUNT 261 X10'3 (140-440); RED BLOOD COUNT 2.93 X10'6 (4.70-6.10); RED CELL DISTRIBUTION WIDTH 15.1 % (11.5-14.5); WHITE BLOOD COUNT 9.9 X10'3 (4.5-11.0)
[2021-11-22 09:57] LABS: ALANINE AMINOTRANSFERASE 42 U/L (12-78); ALBUMIN 1.8 G/DL (3.4-5.0); ALBUMIN/GLOBULIN RATIO 0.4 (1.1-1.5); ALKALINE PHOSPHATASE 153 IU/L (46-116); ANION GAP 12 (8-16); ASPARTATE AMINO TRANSFERASE 23 U/L (10-37); BILIRUBIN,TOTAL 0.9 MG/DL (0.1-1.0); BLOOD UREA NITROGEN 37 MG/DL (7-18); BUN/CREATININE RATIO 29.8 (5.4-32.0); CALCIUM 8.2 MG/DL (8.5-10.1); CHLORIDE 110 MMOL/L (99-107); CREATININE 1.24 MG/DL (0.60-1.10); GLUCOSE 101 MG/DL (70-104); POTASSIUM 3.6 MMOL/L (3.5-5.1); SODIUM 142 MMOL/L (135-145); TOTAL CARBON DIOXIDE 20.5 MMOL/L (24-32); eGFR 55 ML/MIN
[2021-11-22 11:00] VITALS: BP 136/55
[2021-11-22] MEDS: HYDROcodone/acetaminophen 10/325mg tab PO PRN ×2 (12:05→18:30)
[2021-11-22] MEDS: lactose-reduced food (Ensure High Protein) 237ml bottle PO SCH ×2 (13:00→18:00)
[2021-11-22 15:00] VITALS: BP 122/58
[2021-11-22] MEDS: VANCOMYCIN 750MG IV in NS 250 ML IV SCH (16:57)
[2021-11-22 18:00] VITALS: BP 81/59
--- NOTE | 2021-11-22 18:30 | NUR ---
Problems reprioritized. Patient report given, questions answered & plan of care reviewed with NOEL Olvera. Pt arrived from ED around 1600, paged MD Graham regarding nicardipine gtt as orders still active but in note states to dc. MD Graham discontinued drip and ordered PO metoprolol & PRN hydralazine.
[2021-11-22 21:00] VITALS: BP 86/50
[2021-11-22] MEDS: QUEtiapine 25mg tablet PO SCH (21:03)
[2021-11-22 22:00] VITALS: BP 124/77
[2021-11-23] VITALS (7 sets, daily range): BP systolic 110–144; BP diastolic 52–82
[2021-11-23] MEDS: HYDROcodone/acetaminophen 10/325mg tab PO PRN (02:04)
[2021-11-23] MEDS: lactose-reduced food (Ensure High Protein) 237ml bottle PO SCH ×3 (08:00→18:00)
[2021-11-23] MEDS: sacubitril/valsartan 24mg-26mg tablet PO SCH ×2 (08:00→19:39)
[2021-11-23] MEDS: K and/or MAG REPLACEMENT MC SCH ×2 (08:00→20:00)
[2021-11-23] MEDS: LIPASE/PROTEASE/AMYLASE 10,500 units CAPSULE.DR PO SCH ×2 (08:57→17:35)
[2021-11-23] MEDS: furosemide 20 MG/2 ML vial IV SCH ×2 (08:58→19:38)
[2021-11-23] MEDS: clopidogrel 75mg tablet PO SCH (08:58)
[2021-11-23] MEDS: ESCITALOPRAM OXALATE 5 MG TABLET PO SCH (08:58)
[2021-11-23] MEDS: megestrol acetate 20mg tablet PO SCH (08:58)
[2021-11-23] MEDS: atorvastatin 20mg tablet PO SCH (08:58)
[2021-11-23] MEDS: docusate sod 100mg capsule PO SCH ×2 (08:59→19:38)
[2021-11-23] MEDS: aspirin 81mg tab.chew PO SCH (08:59)
[2021-11-23] MEDS: isosorbide mononitrate 30mg tab.SR.24H PO SCH (08:59)
[2021-11-23] MEDS: ranolazine 500mg SR tablet (Q12H) PO SCH ×2 (08:59→19:39)
[2021-11-23] MEDS: heparin, porcine 5000 units/ml vial SQ SCH ×2 (08:59→19:38)
[2021-11-23] MEDS: metoprolol tartrate 12.5mg (1/2 tablet) PO SCH ×2 (08:59→19:39)
[2021-11-23] MEDS: allopurinol 300 MG tablet PO SCH (09:00)
[2021-11-23] MEDS: pantoprazole 40mg Tablet.DR PO SCH (09:00)
[2021-11-23] MEDS ORDERED: VANCOMYCIN LEVEL IV ONE (15:30)
[2021-11-23 16:40] LABS: BASOPHILS % (AUTO) 0.3 % (0-1); EOSINOPHILS % (AUTO) 0.3 % (0-6); HEMATOCRIT 27.7 % (42.0-52.0); HEMOGLOBIN 9.4 g/dl (14.0-17.9); LYMPHOCYTES # (AUTO) 0.9 X10'3 (1.1-4.8); LYMPHOCYTES % (AUTO) 10.3 % (21-51); MEAN CORPUSCULAR HGB CONC 34.1 g/dL (33.0-36.5); MEAN CORPUSCULAR VOLUME 105.7 FL (78-98); MEAN PLATELET VOLUME 7.8 FL (7.4-10.4); MONOCYTES # (AUTO) 0.7 X10'3 (0-0.9); MONOCYTES % (AUTO) 7.9 % (2-12); NEUTROPHILS # (AUTO) 7.4 X10'3 (1.8-7.7); NEUTROPHILS % (AUTO) 81.2 % (42-75); PLATELET COUNT 250 X10'3 (140-440); RED BLOOD COUNT 2.62 X10'6 (4.70-6.10); RED CELL DISTRIBUTION WIDTH 15.1 % (11.5-14.5); WHITE BLOOD COUNT 9.1 X10'3 (4.5-11.0)
[2021-11-23 17:04] LABS: ALANINE AMINOTRANSFERASE 28 U/L (12-78); ALBUMIN 1.7 G/DL (3.4-5.0); ALBUMIN/GLOBULIN RATIO 0.4 (1.1-1.5); ALKALINE PHOSPHATASE 131 IU/L (46-116); ANION GAP 13 (8-16); ASPARTATE AMINO TRANSFERASE 24 U/L (10-37); BILIRUBIN,TOTAL 0.5 MG/DL (0.1-1.0); BLOOD UREA NITROGEN 44 MG/DL (7-18); BUN/CREATININE RATIO 38.9 (5.4-32.0); CHLORIDE 109 MMOL/L (99-107); CREATININE 1.13 MG/DL (0.60-1.10); GLUCOSE 111 MG/DL (70-104); POTASSIUM 3.6 MMOL/L (3.5-5.1); SODIUM 141 MMOL/L (135-145); TOTAL CARBON DIOXIDE 18.8 MMOL/L (24-32); TOTAL PROTEIN 5.5 G/DL (6.4-8.2); VANCOMYCIN,TROUGH 16.7 UG/ML (6.0-14.0); eGFR 61 ML/MIN
[2021-11-23] MEDS: VANCOMYCIN 750MG IV in NS 250 ML IV SCH (17:35)
--- NOTE | 2021-11-23 18:00 | NUR ---
Problems reprioritized. Patient report given, questions answered & plan of care reviewed with NOEL Jordan.
--- NOTE | 2021-11-23 19:25 | NUR ---
Patient in room PCU 3020O. I have received report from and had the opportunity to ask questions and assume patient care. Pt laying in bed, sitter at bed side. Pt on RA, no s/s of distress or s/s of pain. BLL, call light within reach, frequently used items in reach, frequent rounding, trash collector supervisor socks on. Will continue to monitor.
[2021-11-23] MEDS: QUEtiapine 25mg tablet PO SCH (21:08)
[2021-11-23] MEDS: acetaminophen 325mg tablet PO PRN (21:08)
[2021-11-23] MEDS: haloperidol lactate 5mg/ml inj IM PRN (22:59)
[2021-11-24] MEDS: temazepam 15mg capsule PO PRN (00:03)
[2021-11-24] MEDS: traZODone 50mg tablet PO PRN (01:00)
--- NOTE | 2021-11-24 06:50 | NUR ---
Problems reprioritized. Patient report given, questions answered & plan of care reviewed with Natalie COHEN.
--- NOTE | 2021-11-24 06:58 | NUR ---
Patient in room PCU 3028. I have received report from Nikki COHEN and had the opportunity to ask questions and assume patient care.
[2021-11-24 07:00] LABS: BASOPHILS % (AUTO) 0.3 % (0-1); EOSINOPHILS % (AUTO) 0.3 % (0-6); HEMATOCRIT 27.2 % (42.0-52.0); HEMOGLOBIN 9.5 g/dl (14.0-17.9); LYMPHOCYTES # (AUTO) 1.3 X10'3 (1.1-4.8); LYMPHOCYTES % (AUTO) 15.6 % (21-51); MEAN CORPUSCULAR HEMOGLOBIN 36.8 PG (27.0-31.0); MEAN CORPUSCULAR VOLUME 105.1 FL (78-98); MEAN PLATELET VOLUME 7.9 FL (7.4-10.4); MONOCYTES # (AUTO) 0.7 X10'3 (0-0.9); NEUTROPHILS # (AUTO) 6.1 X10'3 (1.8-7.7); NEUTROPHILS % (AUTO) 74.8 % (42-75); PLATELET COUNT 250 X10'3 (140-440); RED BLOOD COUNT 2.59 X10'6 (4.70-6.10); WHITE BLOOD COUNT 8.1 X10'3 (4.5-11.0)
[2021-11-24] MEDS: LIPASE/PROTEASE/AMYLASE 10,500 units CAPSULE.DR PO SCH ×2 (07:30→17:49)
[2021-11-24] MEDS: ranolazine 500mg SR tablet (Q12H) PO SCH ×2 (07:57→20:08)
[2021-11-24] MEDS: allopurinol 300 MG tablet PO SCH (07:58)
[2021-11-24] MEDS: sacubitril/valsartan 24mg-26mg tablet PO SCH ×2 (07:58→20:07)
[2021-11-24] MEDS: pantoprazole 40mg Tablet.DR PO SCH (07:58)
[2021-11-24] MEDS: aspirin 81mg tab.chew PO SCH (07:59)
[2021-11-24] MEDS: K and/or MAG REPLACEMENT MC SCH ×2 (08:00→20:00)
[2021-11-24] MEDS: isosorbide mononitrate 30mg tab.SR.24H PO SCH (08:00)
[2021-11-24] MEDS: atorvastatin 20mg tablet PO SCH (08:00)
[2021-11-24] MEDS: megestrol acetate 20mg tablet PO SCH (08:00)
[2021-11-24] MEDS: lactose-reduced food (Ensure High Protein) 237ml bottle PO SCH ×4 (08:00→19:00)
[2021-11-24] MEDS: metoprolol tartrate 12.5mg (1/2 tablet) PO SCH ×2 (08:00→20:07)
[2021-11-24] MEDS: furosemide 20 MG/2 ML vial IV SCH ×2 (08:01→20:08)
[2021-11-24] MEDS: clopidogrel 75mg tablet PO SCH (08:01)
[2021-11-24] MEDS: ESCITALOPRAM OXALATE 5 MG TABLET PO SCH (08:01)
[2021-11-24] MEDS: docusate sod 100mg capsule PO SCH ×2 (08:01→20:07)
[2021-11-24] MEDS: heparin, porcine 5000 units/ml vial SQ SCH ×2 (08:02→20:08)
[2021-11-24 11:00] VITALS: BP 112/58
--- NOTE | 2021-11-24 13:05 | NUR ---
Reassessment: PO intake fluctuates, documented with average 83% PO intake of three meals on 11/21 down to mostly 0% on 11/22 and average 42% PO intake on 11/23. Pt now receiving an Ensure High Protein TID of which pt documented with average 50% PO intake of ONS. Despite fluctuations it appears PO intake is improving. Pt also receiving additional items on meal trays in hopes of optimizing PO intake, see below. LBM 11/23 per I&O. No further nutrition intervention implemented at this time. Will continue to follow closely. Recommendations: 1. Continue EC7 diet per MONITOR TECH recs; assist with meals 2. Alternate yogurt and cottage cheese WB, smoothies WL, shake WS 3. Ensure High Protein TIDWM; pt apparently does not like the taste 4. MVI supplementation per MD discretion; MCV 105.1 per EMR 5. Routine bowel care 6. Scaled wt this admit; subsequent weekly wts 7. Initiate nutrition support if PO does not improve and within POC Addendum: 11/24/21 at [address] Amended: Links added.
[2021-11-24 15:00] VITALS: BP 133/62
[2021-11-24] MEDS: VANCOMYCIN 750MG IV in NS 250 ML IV SCH (15:44)
[2021-11-24 18:00] VITALS: BP 148/68
--- NOTE | 2021-11-24 18:24 | NUR ---
Problems reprioritized. Patient report given, questions answered & plan of care reviewed with Nikki COHEN.
--- NOTE | 2021-11-24 19:01 | NUR ---
Patient in room U 3029H. I have received report from Natalie COHEN and had the opportunity to ask questions and assume patient care. Pt is sitting up high fowlers being assisted with dinner. Pt is on Ra, nos/s of distress or sob. Pt declines any c/o pain. BLL, call light withn reach, frequently used items in reach, frequent rounding, chief operator synthesis sock on r foot, sitter at bedside. Will continue to monitor.
[2021-11-24] MEDS: QUEtiapine 25mg tablet PO SCH (20:08)
[2021-11-25 02:00] VITALS: BP 140/60
[2021-11-25 05:43] LABS: BASOPHILS % (AUTO) 0.2 % (0-1); EOSINOPHILS % (AUTO) 0.2 % (0-6); HEMOGLOBIN 9.7 g/dl (14.0-17.9); LYMPHOCYTES # (AUTO) 1.1 X10'3 (1.1-4.8); LYMPHOCYTES % (AUTO) 12.4 % (21-51); MEAN CORPUSCULAR HEMOGLOBIN 36.5 PG (27.0-31.0); MEAN CORPUSCULAR HGB CONC 34.5 g/dL (33.0-36.5); MEAN CORPUSCULAR VOLUME 105.9 FL (78-98); MONOCYTES # (AUTO) 0.9 X10'3 (0-0.9); MONOCYTES % (AUTO) 10.6 % (2-12); NEUTROPHILS # (AUTO) 6.6 X10'3 (1.8-7.7); NEUTROPHILS % (AUTO) 76.6 % (42-75); PLATELET COUNT 245 X10'3 (140-440); RED BLOOD COUNT 2.65 X10'6 (4.70-6.10); RED CELL DISTRIBUTION WIDTH 15.1 % (11.5-14.5); WHITE BLOOD COUNT 8.6 X10'3 (4.5-11.0)
[2021-11-25 06:00] VITALS: BP 144/69
--- NOTE | 2021-11-25 06:19 | NUR ---
Patient in room PCU 3028. I have received report from NOEL Jordan and had the opportunity to ask questions and assume patient care.
[2021-11-25] MEDS: aspirin 81mg tab.chew PO SCH (08:00)
[2021-11-25] MEDS: ESCITALOPRAM OXALATE 5 MG TABLET PO SCH (08:00)
[2021-11-25] MEDS: clopidogrel 75mg tablet PO SCH (08:00)
[2021-11-25] MEDS: megestrol acetate 20mg tablet PO SCH (08:00)
[2021-11-25] MEDS: sacubitril/valsartan 24mg-26mg tablet PO SCH ×2 (08:00→20:00)
[2021-11-25] MEDS: atorvastatin 20mg tablet PO SCH (08:00)
[2021-11-25] MEDS: LIPASE/PROTEASE/AMYLASE 10,500 units CAPSULE.DR PO SCH ×2 (08:00→18:06)
[2021-11-25] MEDS: K and/or MAG REPLACEMENT MC SCH ×2 (08:00→20:00)
[2021-11-25] MEDS: furosemide 20 MG/2 ML vial IV SCH ×2 (08:00→20:00)
[2021-11-25] MEDS: docusate sod 100mg capsule PO SCH ×2 (08:00→20:00)
[2021-11-25] MEDS: ranolazine 500mg SR tablet (Q12H) PO SCH ×2 (08:00→20:00)
[2021-11-25] MEDS: isosorbide mononitrate 30mg tab.SR.24H PO SCH (08:00)
[2021-11-25] MEDS: heparin, porcine 5000 units/ml vial SQ SCH ×2 (08:01→20:00)
[2021-11-25] MEDS: metoprolol tartrate 12.5mg (1/2 tablet) PO SCH ×2 (08:01→20:00)
[2021-11-25] MEDS: allopurinol 300 MG tablet PO SCH (08:01)
[2021-11-25 10:00] VITALS: BP 117/64
[2021-11-25] MEDS ORDERED: furosemide 40mg/4ml inj IV ONE (11:00)
[2021-11-25] MEDS: lactose-reduced food (Ensure High Protein) 237ml bottle PO SCH ×2 (13:56→18:11)
[2021-11-25 15:00] VITALS: BP 136/87
[2021-11-25] MEDS: haloperidol lactate 5mg/ml inj IM PRN (16:31)
[2021-11-25 18:00] VITALS: BP 145/68
--- NOTE | 2021-11-25 18:29 | NUR ---
Problems reprioritized. Patient report given, questions answered & plan of care reviewed with NOEL Jordan.
--- NOTE | 2021-11-25 19:09 | NUR ---
Patient in room U 1323M. I have received report from Natalie COHEN and had the opportunity to ask questions and assume patient care. Pt is laying semi fowlers and appears to be resting well. No s/s of distress, or s/s of pain. Sitter at bed side. BLL, call light wihtin reach, frequently used items in reach, frequent rounding, tab alarm active in place and alarm audiable. Will continue to monitor.
[2021-11-25] MEDS ORDERED: nystatin 15 GM powder TP SCH (21:00)
[2021-11-25] MEDS: QUEtiapine 25mg tablet PO SCH (21:00)
[2021-11-25 22:00] VITALS: BP 143/81
[2021-11-26] MEDS: HYDROcodone/acetaminophen 10/325mg tab PO PRN ×3 (00:44→20:13)
--- NOTE | 2021-11-26 01:03 | NUR ---
Sitter alerted primary nurse that pt was in pain. Pt showed s/s of pain. PRN norco 10/325 pulled from omni, scanned into emar, popped into med cup and prepared to administer to Pt. Upon administration Pt declined to open his eyes to take med, became upset with primary nurses interventions to arouse him further. Med unadministered on emar, and norco 10/325 returned to Pharmacy for documentation and waste. VSS, no s/s of distress. Will continue to monitor.
[2021-11-26 06:00] VITALS: BP 142/73
--- NOTE | 2021-11-26 06:30 | NUR ---
Patient in room PCU 3028. I have received report from NOEL Jordan and had the opportunity to ask questions and assume patient care.
--- NOTE | 2021-11-26 06:55 | NUR ---
Problems reprioritized. Patient report given, questions answered & plan of care reviewed with Yris COHEN.
[2021-11-26 07:05] LABS: BASOPHILS % (AUTO) 0.2 % (0-1); EOSINOPHILS % (AUTO) 0.2 % (0-6); HEMATOCRIT 27.8 % (42.0-52.0); HEMOGLOBIN 9.5 g/dl (14.0-17.9); LYMPHOCYTES # (AUTO) 1.1 X10'3 (1.1-4.8); LYMPHOCYTES % (AUTO) 14.9 % (21-51); MEAN CORPUSCULAR HEMOGLOBIN 35.8 PG (27.0-31.0); MEAN CORPUSCULAR HGB CONC 34.2 g/dL (33.0-36.5); MEAN CORPUSCULAR VOLUME 104.9 FL (78-98); MEAN PLATELET VOLUME 8.1 FL (7.4-10.4); MONOCYTES # (AUTO) 0.8 X10'3 (0-0.9); MONOCYTES % (AUTO) 10.8 % (2-12); NEUTROPHILS # (AUTO) 5.4 X10'3 (1.8-7.7); NEUTROPHILS % (AUTO) 73.9 % (42-75); PLATELET COUNT 236 X10'3 (140-440); RED BLOOD COUNT 2.65 X10'6 (4.70-6.10); WHITE BLOOD COUNT 7.2 X10'3 (4.5-11.0)
[2021-11-26] MEDS: ipratropium/albuterol 3ml nebule NEB PRN ×2 (07:53→19:50)
[2021-11-26] MEDS ORDERED: PANTOPRAZOLE 20 MG PO SCH (08:00)
[2021-11-26] MEDS: K and/or MAG REPLACEMENT MC SCH ×2 (08:00→20:00)
[2021-11-26] MEDS: lactose-reduced food (Ensure High Protein) 237ml bottle PO SCH ×3 (08:00→18:01)
[2021-11-26] MEDS: acetaminophen 325mg tablet PO PRN (08:16)
[2021-11-26] MEDS: ESCITALOPRAM OXALATE 5 MG TABLET PO SCH (10:40)
[2021-11-26] MEDS: pantoprazole 40mg Tablet.DR PO SCH (10:40)
[2021-11-26] MEDS: ranolazine 500mg SR tablet (Q12H) PO SCH ×2 (10:41→20:02)
[2021-11-26] MEDS: LIPASE/PROTEASE/AMYLASE 10,500 units CAPSULE.DR PO SCH ×2 (10:41→17:30)
[2021-11-26] MEDS: aspirin 81mg tab.chew PO SCH (10:41)
[2021-11-26] MEDS: atorvastatin 20mg tablet PO SCH (10:42)
[2021-11-26] MEDS: sacubitril/valsartan 24mg-26mg tablet PO SCH ×2 (10:42→20:02)
[2021-11-26] MEDS: clopidogrel 75mg tablet PO SCH (10:42)
[2021-11-26] MEDS: isosorbide mononitrate 30mg tab.SR.24H PO SCH (10:42)
[2021-11-26] MEDS: metoprolol tartrate 12.5mg (1/2 tablet) PO SCH ×2 (10:42→20:02)
[2021-11-26] MEDS: docusate sod 100mg capsule PO SCH ×2 (10:42→20:00)
[2021-11-26] MEDS: heparin, porcine 5000 units/ml vial SQ SCH ×2 (10:43→20:01)
[2021-11-26] MEDS: nystatin 15 GM powder TP SCH ×2 (10:43→20:05)
[2021-11-26] MEDS: allopurinol 300 MG tablet PO SCH (10:43)
[2021-11-26] MEDS: megestrol acetate 20mg tablet PO SCH (10:43)
[2021-11-26] MEDS: furosemide 20 MG/2 ML vial IV SCH ×2 (10:43→20:02)
[2021-11-26 11:00] VITALS: BP 140/83
[2021-11-26] MEDS ORDERED: furosemide 40mg/4ml inj IV ONE (13:20)
[2021-11-26 15:00] VITALS: BP 120/62
[2021-11-26] MEDS ORDERED: VANCOMYCIN 750MG IV in NS 250 ML IV SCH (16:00)
[2021-11-26] MEDS: DOXYCYCLINE 100MG CAPSULE PO SCH (17:29)
--- NOTE | 2021-11-26 19:00 | NUR ---
Problems reprioritized. Patient report given, questions answered & plan of care reviewed with Juju RN.
[2021-11-26] MEDS: traZODone 50mg tablet PO PRN (20:05)
[2021-11-26] MEDS: QUEtiapine 25mg tablet PO SCH (20:12)
[2021-11-27 06:00] VITALS: BP 114/61
--- NOTE | 2021-11-27 06:27 | NUR ---
Patient in room PCU 3028. I have received report from Juju RN and had the opportunity to ask questions and assume patient care.
[2021-11-27 07:08] LABS: BASOPHILS % (AUTO) 0.3 % (0-1); EOSINOPHILS % (AUTO) 0.4 % (0-6); HEMATOCRIT 28.3 % (42.0-52.0); HEMOGLOBIN 9.8 g/dl (14.0-17.9); MEAN CORPUSCULAR HEMOGLOBIN 36.7 PG (27.0-31.0); MEAN CORPUSCULAR HGB CONC 34.5 g/dL (33.0-36.5); MEAN CORPUSCULAR VOLUME 106.5 FL (78-98); MEAN PLATELET VOLUME 7.8 FL (7.4-10.4); MONOCYTES # (AUTO) 0.8 X10'3 (0-0.9); MONOCYTES % (AUTO) 11.1 % (2-12); NEUTROPHILS % (AUTO) 73.2 % (42-75); PLATELET COUNT 227 X10'3 (140-440); RED BLOOD COUNT 2.66 X10'6 (4.70-6.10); RED CELL DISTRIBUTION WIDTH 15.3 % (11.5-14.5); WHITE BLOOD COUNT 6.8 X10'3 (4.5-11.0)
[2021-11-27 07:18] LABS: ALBUMIN 1.7 G/DL (3.4-5.0); ANION GAP 12 (8-16); BLOOD UREA NITROGEN 41 MG/DL (7-18); BUN/CREATININE RATIO 32.8 (5.4-32.0); CALCIUM 7.9 MG/DL (8.5-10.1); CHLORIDE 107 MMOL/L (99-107); CREATININE 1.25 MG/DL (0.60-1.10); GLUCOSE 96 MG/DL (70-104); SODIUM 143 MMOL/L (135-145); TOTAL CARBON DIOXIDE 24.1 MMOL/L (24-32); eGFR 54 ML/MIN
[2021-11-27 07:23] LABS: POTASSIUM 3.6 MMOL/L (3.5-5.1)
[2021-11-27] MEDS: lactose-reduced food (Ensure High Protein) 237ml bottle PO SCH ×2 (08:00→18:00)
[2021-11-27] MEDS: K and/or MAG REPLACEMENT MC SCH ×2 (08:00→20:00)
[2021-11-27] MEDS: isosorbide mononitrate 30mg tab.SR.24H PO SCH (09:33)
[2021-11-27] MEDS: ranolazine 500mg SR tablet (Q12H) PO SCH ×2 (09:33→21:12)
[2021-11-27] MEDS: docusate sod 100mg capsule PO SCH ×2 (09:33→20:58)
[2021-11-27] MEDS: DOXYCYCLINE 100MG CAPSULE PO SCH ×2 (09:33→21:04)
[2021-11-27] MEDS: allopurinol 300 MG tablet PO SCH (09:34)
[2021-11-27] MEDS: megestrol acetate 20mg tablet PO SCH (09:35)
[2021-11-27] MEDS: LIPASE/PROTEASE/AMYLASE 10,500 units CAPSULE.DR PO SCH ×2 (09:35→21:05)
[2021-11-27] MEDS: pantoprazole 40mg Tablet.DR PO SCH (09:36)
[2021-11-27] MEDS: clopidogrel 75mg tablet PO SCH (09:36)
[2021-11-27] MEDS: atorvastatin 20mg tablet PO SCH (09:36)
[2021-11-27] MEDS: sacubitril/valsartan 24mg-26mg tablet PO SCH ×2 (09:36→21:12)
[2021-11-27] MEDS: ESCITALOPRAM OXALATE 5 MG TABLET PO SCH (09:40)
[2021-11-27] MEDS: furosemide 20 MG/2 ML vial IV SCH ×2 (09:40→21:04)
[2021-11-27] MEDS: aspirin 81mg tab.chew PO SCH (09:40)
[2021-11-27] MEDS: metoprolol tartrate 12.5mg (1/2 tablet) PO SCH ×2 (09:40→20:58)
[2021-11-27] MEDS: heparin, porcine 5000 units/ml vial SQ SCH ×2 (09:41→21:06)
[2021-11-27] MEDS: nystatin 15 GM powder TP SCH ×2 (09:42→20:00)
[2021-11-27 11:00] VITALS: BP 101/55
--- NOTE | 2021-11-27 11:23 | NUR ---
Reassessment: PO intake continues to fluctuate. Since last RD assessment (11/24) pt has refused two meals, bringing down average meal intake to 20% (x 7 meals). PO intake of ONS has significantly improved, documented with average 90% PO intake of ONS. Combined PO intake of meals and ONS is meeting roughly 52% estimated energy needs and 59% estimated protein needs. IF PO intake does not improve pt would benefit from nutrition support if within POC. LBM 11/26. Will continue to follow closely. Recommendations: 1. Continue SB6 diet per FORMULA ROOM WORKER recs; assist with meals 2. Alternate yogurt and cottage cheese WB, smoothies WL, shake WS 3. Ensure High Protein TIDWM; ONS change to Ensure Plus HP once available 4. MVI supplementation per MD discretion; MCV 106.5 per EMR 5. Routine bowel care 6. Scaled wt this admit; subsequent weekly wts 7. Initiate nutrition support if PO does not improve and within POC Addendum: 11/27/21 at [address] Amended: Links added.
[2021-11-27 15:00] VITALS: BP 113/54
[2021-11-27 18:00] VITALS: BP 101/51
--- NOTE | 2021-11-27 18:42 | NUR ---
Patient in room U 3028. I have received report from NOEL TAN and had the opportunity to ask questions and assume patient care. Addendum: 11/27/21 at 1844 by Ayaka Guerrero RN Amended: Links added.
--- NOTE | 2021-11-27 19:15 | NUR ---
Problems reprioritized. Patient report given, questions answered & plan of care reviewed with Mendy COHEN, patient stable at transfer of care.
[2021-11-27] MEDS: QUEtiapine 25mg tablet PO SCH (21:08)
[2021-11-27 22:00] VITALS: BP 130/99
[2021-11-28 02:00] VITALS: BP 131/60
[2021-11-28 07:00] VITALS: BP 105/76
--- NOTE | 2021-11-28 07:03 | NUR ---
Problems reprioritized. Patient report given, questions answered & plan of care reviewed with NOEL MARRERO. Addendum: 11/28/21 at 0704 by Ayaka Guerrero RN Amended: Links added.
--- NOTE | 2021-11-28 07:19 | NUR ---
Patient in room PCU 3028. I have received report from Ayaka COHEN and had the opportunity to ask questions and assume patient care.
[2021-11-28] MEDS: lactose-reduced food (Ensure High Protein) 237ml bottle PO SCH ×3 (08:00→18:00)
[2021-11-28] MEDS: docusate sod 100mg capsule PO SCH ×2 (08:00→20:47)
[2021-11-28] MEDS: K and/or MAG REPLACEMENT MC SCH ×2 (08:00→20:00)
[2021-11-28] MEDS: DOXYCYCLINE 100MG CAPSULE PO SCH ×2 (08:30→20:45)
[2021-11-28 11:00] VITALS: BP 123/66
[2021-11-28] MEDS: isosorbide mononitrate 30mg tab.SR.24H PO SCH (11:03)
[2021-11-28] MEDS: LIPASE/PROTEASE/AMYLASE 10,500 units CAPSULE.DR PO SCH ×2 (11:03→20:47)
[2021-11-28] MEDS: allopurinol 300 MG tablet PO SCH (11:04)
[2021-11-28] MEDS: clopidogrel 75mg tablet PO SCH (11:05)
[2021-11-28] MEDS: atorvastatin 20mg tablet PO SCH (11:05)
[2021-11-28] MEDS: pantoprazole 40mg Tablet.DR PO SCH (11:06)
[2021-11-28] MEDS: ESCITALOPRAM OXALATE 5 MG TABLET PO SCH (11:07)
[2021-11-28] MEDS: ranolazine 500mg SR tablet (Q12H) PO SCH ×2 (11:07→20:52)
[2021-11-28] MEDS: HYDROcodone/acetaminophen 10/325mg tab PO PRN (11:08)
[2021-11-28] MEDS: QUEtiapine 25mg tablet PO SCH ×2 (11:09→20:46)
[2021-11-28] MEDS: metoprolol tartrate 12.5mg (1/2 tablet) PO SCH ×2 (11:09→20:46)
[2021-11-28] MEDS: sacubitril/valsartan 24mg-26mg tablet PO SCH ×2 (11:09→20:47)
[2021-11-28] MEDS: furosemide 20 MG/2 ML vial IV SCH ×2 (11:10→20:48)
[2021-11-28] MEDS: heparin, porcine 5000 units/ml vial SQ SCH ×2 (11:10→20:48)
[2021-11-28] MEDS: nystatin 15 GM powder TP SCH ×2 (11:11→20:53)
[2021-11-28] MEDS: megestrol acetate 20mg tablet PO SCH (11:13)
[2021-11-28] MEDS: aspirin 81mg tab.chew PO SCH (11:13)
[2021-11-28 15:00] VITALS: BP 105/51
[2021-11-28 18:00] VITALS: BP 105/58
--- NOTE | 2021-11-28 18:24 | NUR ---
Patient in room U 3028. I have received report from NEOL MARRERO and had the opportunity to ask questions and assume patient care. Addendum: 11/28/21 at 1824 by Ayaka Guerrero RN Amended: Links added.
--- NOTE | 2021-11-28 18:36 | NUR ---
Problems reprioritized. Patient report given, questions answered & plan of care reviewed with Ayaka COHEN.
--- NOTE | 2021-11-28 21:00 | NUR ---
took hs meds crushed in apple sauce he had refused dinner but was and to get him to drink 100% of protein drink his had brought him today.
[2021-11-28 22:00] VITALS: BP 108/62
--- NOTE | 2021-11-29 00:38 | NUR ---
pt appears comfortable resting without s&s of distress.
--- NOTE | 2021-11-29 01:54 | NUR ---
resting without changes.
[2021-11-29 02:18] VITALS: BP 102/60
[2021-11-29 06:00] VITALS: BP 115/67
--- NOTE | 2021-11-29 07:02 | NUR ---
Problems reprioritized. Patient report given, questions answered & plan of care reviewed with NOEL LEIGH. Addendum: 11/29/21 at 0703 by Ayaka Guerrero RN Amended: Links added.
[2021-11-29] MEDS: lactose-reduced food (Ensure High Protein) 237ml bottle PO SCH ×3 (08:00→19:00)
[2021-11-29] MEDS: metoprolol tartrate 12.5mg (1/2 tablet) PO SCH ×2 (08:00→20:30)
[2021-11-29] MEDS: K and/or MAG REPLACEMENT MC SCH ×2 (08:00→20:00)
[2021-11-29] MEDS: nystatin 15 GM powder TP SCH ×2 (08:00→20:17)
[2021-11-29] MEDS: ranolazine 500mg SR tablet (Q12H) PO SCH ×2 (10:51→20:15)
[2021-11-29] MEDS: docusate sod 100mg capsule PO SCH ×2 (10:51→20:00)
[2021-11-29] MEDS: pantoprazole 40mg Tablet.DR PO SCH (10:52)
[2021-11-29] MEDS: isosorbide mononitrate 30mg tab.SR.24H PO SCH (10:52)
[2021-11-29] MEDS: DOXYCYCLINE 100MG CAPSULE PO SCH ×2 (10:55→17:41)
[2021-11-29] MEDS: LIPASE/PROTEASE/AMYLASE 10,500 units CAPSULE.DR PO SCH ×2 (10:55→17:41)
[2021-11-29] MEDS: clopidogrel 75mg tablet PO SCH (10:57)
[2021-11-29] MEDS: ESCITALOPRAM OXALATE 5 MG TABLET PO SCH (10:58)
[2021-11-29] MEDS: allopurinol 300 MG tablet PO SCH (10:58)
[2021-11-29] MEDS: aspirin 81mg tab.chew PO SCH (10:58)
[2021-11-29] MEDS: megestrol acetate 20mg tablet PO SCH (10:58)
[2021-11-29] MEDS: sacubitril/valsartan 24mg-26mg tablet PO SCH ×2 (10:59→20:00)
[2021-11-29] MEDS: atorvastatin 20mg tablet PO SCH (10:59)
[2021-11-29 11:00] VITALS: BP 136/57
[2021-11-29] MEDS: heparin, porcine 5000 units/ml vial SQ SCH ×2 (11:01→20:15)
[2021-11-29] MEDS: furosemide 20 MG/2 ML vial IV SCH ×2 (11:04→20:00)
[2021-11-29 16:00] VITALS: BP 142/62
[2021-11-29 18:30] VITALS: BP 97/43
[2021-11-29] MEDS: ipratropium/albuterol 3ml nebule NEB PRN (20:09)
[2021-11-29] MEDS: QUEtiapine 25mg tablet PO SCH (20:15)
[2021-11-29] MEDS: HYDROcodone/acetaminophen 10/325mg tab PO PRN (20:33)
[2021-11-29 22:00] VITALS: BP 107/82
[2021-11-30 03:00] VITALS: BP 121/62
[2021-11-30 07:00] VITALS: BP 129/63
[2021-11-30] MEDS: K and/or MAG REPLACEMENT MC SCH ×2 (08:00→20:00)
[2021-11-30] MEDS: ranolazine 500mg SR tablet (Q12H) PO SCH ×2 (08:44→19:18)
[2021-11-30] MEDS: metoprolol tartrate 12.5mg (1/2 tablet) PO SCH ×2 (08:44→19:18)
[2021-11-30] MEDS: sacubitril/valsartan 24mg-26mg tablet PO SCH ×2 (08:44→19:17)
[2021-11-30] MEDS: ESCITALOPRAM OXALATE 5 MG TABLET PO SCH (08:44)
[2021-11-30] MEDS: DOXYCYCLINE 100MG CAPSULE PO SCH ×2 (08:44→17:54)
[2021-11-30] MEDS: isosorbide mononitrate 30mg tab.SR.24H PO SCH (08:45)
[2021-11-30] MEDS: docusate sod 100mg capsule PO SCH ×2 (08:45→19:17)
[2021-11-30] MEDS: clopidogrel 75mg tablet PO SCH (08:45)
[2021-11-30] MEDS: atorvastatin 20mg tablet PO SCH (08:45)
[2021-11-30] MEDS: allopurinol 300 MG tablet PO SCH (08:45)
[2021-11-30] MEDS: aspirin 81mg tab.chew PO SCH (08:45)
[2021-11-30] MEDS: LIPASE/PROTEASE/AMYLASE 10,500 units CAPSULE.DR PO SCH ×2 (08:46→17:54)
[2021-11-30] MEDS: heparin, porcine 5000 units/ml vial SQ SCH ×2 (08:46→19:18)
[2021-11-30] MEDS: furosemide 20 MG/2 ML vial IV SCH ×2 (08:46→21:01)
[2021-11-30] MEDS: megestrol acetate 20mg tablet PO SCH (08:46)
[2021-11-30] MEDS: nystatin 15 GM powder TP SCH ×2 (08:47→20:11)
[2021-11-30] MEDS: pantoprazole 40mg Tablet.DR PO SCH (08:49)
[2021-11-30] MEDS: lactose-reduced food (Ensure High Protein) 237ml bottle PO SCH ×3 (08:54→17:54)
--- NOTE | 2021-11-30 10:00 | NUR ---
Reassessment: PO intake of meals remains poor with mostly 0-25% PO intake however pt continues with good ONS acceptance, documented with mostly 75-100%. 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 Recommend Clem shakes to assist with wound healing however Clem currently out of stock. D/w dietary to send shakes/smoothies with meals as pt appears to be more receptive to liquids. Pt continues receiving routine Megace. If PO intake does not improve pt would benefit from supplemental TF if within POC. Physician paged regarding recommendation for routine MVI in view of elevated MCV and wound. LBM 11/29. Will continue to follow closely. Recommendations: 1. Continue SB6 diet per RISK OFFICER recs; total assist with meals 2. Alternate yogurt and cottage cheese WB, smoothies WB, shake BIDLD 3. Ensure High Protein TIDWM; ONS change to Ensure Plus HP once available; Clem shake BIDLD for wound healing once Clem available, pending physician approval in EMR 4. MVI supplementation per MD discretion; elevated MCV and wounds- physician notified of recommendation 5. Routine bowel care 6. Scaled wt this admit; subsequent weekly wts 7. Initiate nutrition support if PO does not improve and within POC Addendum: 11/30/21 at [address] Amended: Links added.
[2021-11-30 11:00] VITALS: BP 116/64
[2021-11-30] MEDS ORDERED: JUVEN Shake w/Arg/Glut/Ca2+Bmb (Juven 19.3gm) pkt 240ml PO SCH (12:30)
[2021-11-30] MEDS: HYDROcodone/acetaminophen 10/325mg tab PO PRN (13:17)
[2021-11-30 15:30] VITALS: BP 131/70
[2021-11-30 18:00] VITALS: BP 139/73
--- NOTE | 2021-11-30 18:30 | NUR ---
Patient in room PCU 3028. I have received report from david and had the opportunity to ask questions and assume patient care.
--- NOTE | 2021-11-30 18:34 | NUR ---
Problems reprioritized. Patient report given, questions answered & plan of care reviewed with BOYD Darby.
[2021-11-30] MEDS: QUEtiapine 25mg tablet PO SCH (21:00)
[2021-12-01 02:00] VITALS: BP 135/71
--- NOTE | 2021-12-01 05:31 | NUR ---
pt pulled midline iv out at 0530
[2021-12-01 06:00] VITALS: BP 145/70
--- NOTE | 2021-12-01 06:16 | NUR ---
Problems reprioritized. Patient report given, questions answered & plan of care reviewed with david.
[2021-12-01] MEDS: allopurinol 300 MG tablet PO SCH (07:48)
[2021-12-01] MEDS: megestrol acetate 20mg tablet PO SCH (07:48)
[2021-12-01] MEDS: ESCITALOPRAM OXALATE 5 MG TABLET PO SCH (07:49)
[2021-12-01] MEDS: DOXYCYCLINE 100MG CAPSULE PO SCH ×2 (07:49→17:32)
[2021-12-01] MEDS: LIPASE/PROTEASE/AMYLASE 10,500 units CAPSULE.DR PO SCH ×2 (07:49→17:32)
[2021-12-01] MEDS: aspirin 81mg tab.chew PO SCH (07:49)
[2021-12-01] MEDS: metoprolol tartrate 12.5mg (1/2 tablet) PO SCH ×2 (07:50→20:44)
[2021-12-01] MEDS: docusate sod 100mg capsule PO SCH ×2 (07:50→20:44)
[2021-12-01] MEDS: heparin, porcine 5000 units/ml vial SQ SCH ×2 (07:50→20:44)
[2021-12-01] MEDS: pantoprazole 40mg Tablet.DR PO SCH (07:50)
[2021-12-01] MEDS: atorvastatin 20mg tablet PO SCH (07:50)
[2021-12-01] MEDS: clopidogrel 75mg tablet PO SCH (07:50)
[2021-12-01] MEDS: ranolazine 500mg SR tablet (Q12H) PO SCH ×2 (07:50→20:44)
[2021-12-01] MEDS: sacubitril/valsartan 24mg-26mg tablet PO SCH ×2 (07:50→20:44)
[2021-12-01] MEDS: isosorbide mononitrate 30mg tab.SR.24H PO SCH (07:50)
[2021-12-01] MEDS: K and/or MAG REPLACEMENT MC SCH ×2 (08:00→20:00)
[2021-12-01] MEDS: HYDROcodone/acetaminophen 10/325mg tab PO PRN ×2 (08:00→13:50)
[2021-12-01] MEDS: furosemide 20 MG/2 ML vial IV SCH ×2 (08:24→20:00)
[2021-12-01] MEDS: nystatin 15 GM powder TP SCH ×2 (08:26→20:44)
[2021-12-01] MEDS: lactose-reduced food (Ensure High Protein) 237ml bottle PO SCH ×3 (08:26→18:37)
[2021-12-01 11:43] VITALS: BP 111/54
[2021-12-01 16:13] VITALS: BP 125/65
--- NOTE | 2021-12-01 17:00 | NUR ---
Patient found lying in bed with IV pulled out with draw sheet saturated with blood. Second IV pulled out by patient today. Held pressure to right forearm where IV was, large bruise noted, bleeding stopped and wrapped with gauze and coband. Patient cleaned and bedding changed. Will continue to monitor.
[2021-12-01 18:00] VITALS: BP 131/68
--- NOTE | 2021-12-01 18:23 | NUR ---
Problems reprioritized. Patient report given, questions answered & plan of care reviewed with BOYD Darby.
--- NOTE | 2021-12-01 18:30 | NUR ---
Patient in room PCU 3028. I have received report from david and had the opportunity to ask questions and assume patient care.
[2021-12-01] MEDS: QUEtiapine 25mg tablet PO SCH (20:45)
[2021-12-01] MEDS ORDERED: furosemide 40mg tablet PO ONE (22:15)
[2021-12-02 02:00] VITALS: BP 128/68
[2021-12-02 06:00] VITALS: BP 144/66
--- NOTE | 2021-12-02 06:00 | NUR ---
REVIEWED BUSINESS SERVICES CLERK ASSESSMENT AND IN AGREEMENT.
--- NOTE | 2021-12-02 06:49 | NUR ---
Problems reprioritized. Patient report given, questions answered & plan of care reviewed with floral.
[2021-12-02] MEDS: K and/or MAG REPLACEMENT MC SCH ×2 (08:00→20:00)
[2021-12-02] MEDS: lactose-reduced food (Ensure High Protein) 237ml bottle PO SCH ×3 (08:00→12:27)
[2021-12-02] MEDS: heparin, porcine 5000 units/ml vial SQ SCH ×2 (08:00→20:00)
[2021-12-02] MEDS: megestrol acetate 20mg tablet PO SCH (08:00)
[2021-12-02] MEDS: sacubitril/valsartan 24mg-26mg tablet PO SCH ×2 (09:48→20:00)
[2021-12-02] MEDS: ESCITALOPRAM OXALATE 5 MG TABLET PO SCH (09:49)
[2021-12-02] MEDS: allopurinol 300 MG tablet PO SCH (09:49)
[2021-12-02] MEDS: atorvastatin 20mg tablet PO SCH (09:50)
[2021-12-02] MEDS: clopidogrel 75mg tablet PO SCH (09:50)
[2021-12-02] MEDS: docusate sod 100mg capsule PO SCH ×2 (09:51→20:00)
[2021-12-02] MEDS: metoprolol tartrate 12.5mg (1/2 tablet) PO SCH ×2 (09:52→20:00)
[2021-12-02] MEDS: aspirin 81mg tab.chew PO SCH (09:52)
[2021-12-02] MEDS: DOXYCYCLINE 100MG CAPSULE PO SCH ×2 (09:52→17:12)
[2021-12-02] MEDS: ranolazine 500mg SR tablet (Q12H) PO SCH ×2 (09:53→20:00)
[2021-12-02] MEDS: LIPASE/PROTEASE/AMYLASE 10,500 units CAPSULE.DR PO SCH ×2 (09:54→17:13)
[2021-12-02] MEDS: nystatin 15 GM powder TP SCH ×2 (09:55→20:00)
[2021-12-02] MEDS: isosorbide mononitrate 30mg tab.SR.24H PO SCH (10:02)
[2021-12-02] MEDS: pantoprazole 40mg Tablet.DR PO SCH (10:02)
[2021-12-02] MEDS: furosemide 20 MG/2 ML vial IV SCH ×2 (10:45→20:00)
[2021-12-02 13:27] VITALS: BP 136/67
[2021-12-02 16:10] VITALS: BP 147/62
[2021-12-02] MEDS: HYDROcodone/acetaminophen 5mg/325mg tablet PO PRN (17:12)
[2021-12-02 18:00] VITALS: BP 131/65
--- NOTE | 2021-12-02 18:45 | NUR ---
Problems reprioritized. Patient report given, questions answered & plan of care reviewed with Colcord.
[2021-12-02] MEDS: QUEtiapine 25mg tablet PO SCH (21:00)
[2021-12-02 22:00] VITALS: BP 131/62
[2021-12-03 02:00] VITALS: BP 97/62
[2021-12-03 06:00] VITALS: BP 94/65
--- NOTE | 2021-12-03 06:00 | NUR ---
REVIEWED BLACK TOP ROLLER ASSESSMENT AND IN AGREEMENT.
--- NOTE | 2021-12-03 06:48 | NUR ---
Problems reprioritized. Patient report given, questions answered & plan of care reviewed with Nebo RN.
[2021-12-03] MEDS: lactose-reduced food (Ensure High Protein) 237ml bottle PO SCH ×2 (08:00→13:00)
[2021-12-03] MEDS: docusate sod 100mg capsule PO SCH (08:00)
[2021-12-03] MEDS: furosemide 20 MG/2 ML vial IV SCH ×2 (08:00→10:10)
[2021-12-03] MEDS: K and/or MAG REPLACEMENT MC SCH (08:00)
[2021-12-03] MEDS ORDERED: DOXY-224 PO (09:49)
[2021-12-03] MEDS ORDERED: QUET25TA36 PO (09:49)
[2021-12-03] MEDS: LIPASE/PROTEASE/AMYLASE 10,500 units CAPSULE.DR PO SCH (10:10)
[2021-12-03] MEDS: heparin, porcine 5000 units/ml vial SQ SCH (10:10)
[2021-12-03] MEDS: metoprolol tartrate 12.5mg (1/2 tablet) PO SCH (10:12)
[2021-12-03] MEDS: sacubitril/valsartan 24mg-26mg tablet PO SCH (10:13)
[2021-12-03] MEDS: isosorbide mononitrate 30mg tab.SR.24H PO SCH (10:13)
[2021-12-03] MEDS: pantoprazole 40mg Tablet.DR PO SCH (10:13)
[2021-12-03] MEDS: HYDROcodone/acetaminophen 5mg/325mg tablet PO PRN (10:14)
[2021-12-03] MEDS: allopurinol 300 MG tablet PO SCH (10:14)
[2021-12-03] MEDS: ranolazine 500mg SR tablet (Q12H) PO SCH (10:15)
[2021-12-03] MEDS: aspirin 81mg tab.chew PO SCH (10:15)
[2021-12-03] MEDS: atorvastatin 20mg tablet PO SCH (10:15)
[2021-12-03] MEDS: DOXYCYCLINE 100MG CAPSULE PO SCH (10:15)
[2021-12-03] MEDS: clopidogrel 75mg tablet PO SCH (10:15)
[2021-12-03] MEDS: megestrol acetate 20mg tablet PO SCH (10:16)
[2021-12-03] MEDS: ESCITALOPRAM OXALATE 5 MG TABLET PO SCH (10:16)
[2021-12-03] MEDS: nystatin 15 GM powder TP SCH (10:18)
--- NOTE | 2021-12-03 10:52 | NUR ---
Patient did not get IV lasix this morning. Unable to placed IVL. Will talk to dr Moran to change med to PO as pt will be going home today.
[2021-12-03 14:53] VITALS: BP 132/82
--- NOTE | 2021-12-03 17:00 | NUR ---
Patient's and son were called and informed of patient's discharge and time of sweet pickled fruit maker. Patient's discharge instructions were discussed with patient's and son. Patient taken home via transportation that was arranged by the caseworker. Patient alert on discharge.
== END 2021-12-03 17:41 | disposition home health service (06) | DRG 853 ==
LOC: ER 10:30 → ED HOLD 14:26 → PCU 3S 11-11 07:39
PROVIDERS: ADMIT Family Medicine; ATTEND Family Medicine
PROC: B4201ZZ Computerized Tomography (CT Scan) of Abdominal Aorta using Low Osmolar Contrast (ICD-10-PCS; 2021-11-13)
PROC: B42H1ZZ Computerized Tomography (CT Scan) of Bilateral Lower Extremity Arteries using Low Osmolar Contrast (ICD-10-PCS; 2021-11-13)
PROC: B41F1ZZ Fluoroscopy of Right Lower Extremity Arteries using Low Osmolar Contrast (ICD-10-PCS; principal; 2021-11-17)
PROC: 047C3ZZ Dilation of Right Common Iliac Artery, Percutaneous Approach (ICD-10-PCS; 2021-11-17)
PROC: 047D3DZ Dilation of Left Common Iliac Artery with Intraluminal Device, Percutaneous Approach (ICD-10-PCS; 2021-11-17)
PROC: B41C1ZZ Fluoroscopy of Pelvic Arteries using Low Osmolar Contrast (ICD-10-PCS; 2021-11-17)
DX: A41.02 Sepsis due to Methicillin resistant Staphylococcus aureus (principal); E43 Unspecified severe protein-calorie malnutrition; I21.A1 Myocardial infarction type 2; I50.23 Acute on chronic systolic (congestive) heart failure; N17.0 Acute kidney failure with tubular necrosis; J18.9 Pneumonia, unspecified organism; L03.115 Cellulitis of right lower limb; F03.91 Unspecified dementia, unspecified severity, with behavioral disturbance; N30.01 Acute cystitis with hematuria; I13.0 Hypertensive heart and chronic kidney disease with heart failure and stage 1 through stage 4 chronic kidney disease, or unspecified chronic kidney disease; G93.40 Encephalopathy, unspecified; Z20.822 Contact with and (suspected) exposure to COVID-19; R65.20 Severe sepsis without septic shock; E78.5 Hyperlipidemia, unspecified; F32.A Depression, unspecified; I25.10 Atherosclerotic heart disease of native coronary artery without angina pectoris; I45.10 Unspecified right bundle-branch block; I48.91 Unspecified atrial fibrillation; N18.9 Chronic kidney disease, unspecified; F09 Unspecified mental disorder due to known physiological condition; G47.33 Obstructive sleep apnea (adult) (pediatric); I70.8 Atherosclerosis of other arteries; K21.9 Gastro-esophageal reflux disease without esophagitis; M25.561 Pain in right knee; D69.6 Thrombocytopenia, unspecified; R19.7 Diarrhea, unspecified; R41.89 Other symptoms and signs involving cognitive functions and awareness; I73.9 Peripheral vascular disease, unspecified; L97.519 Non-pressure chronic ulcer of other part of right foot with unspecified severity; M10.9 Gout, unspecified; N40.0 Benign prostatic hyperplasia without lower urinary tract symptoms; R29.6 Repeated falls; Z89.512 Acquired absence of left leg below knee; Z22.322 Carrier or suspected carrier of Methicillin resistant Staphylococcus aureus; Z79.02 Long term (current) use of antithrombotics/antiplatelets; Z79.82 Long term (current) use of aspirin; Z79.899 Other long term (current) drug therapy; Z90.49 Acquired absence of other specified parts of digestive tract; Z95.1 Presence of aortocoronary bypass graft; Z95.5 Presence of coronary angioplasty implant and graft; Z88.8 Allergy status to other drugs, medicaments and biological substances; Z68.23 Body mass index [BMI] 23.0-23.9, adult
CPT/HCPCS: 36410; 36415; 36600; 37220; 37223; 70450; 71045; 73560; 73564; 73620; 73718; 75635; 76942; 80048; 80053; 80061; 80202; 81001; 82803; 82948; 83036; 83605; 83735; 83880; 84100; 84132; 84145; 84443; 84484; 84550; 85018; 85025; 85610; 85730; 87040; 87077; 87081; 87088; 87186; 87811; 92508; 92616; 93005; 93306; 93926; 94640; 94760; 97110; 97162; 97530; 97535; 97761; 99291; 99292; A4349; A4620; A4649; A6212; A6213; A6250; A6258; A6449; C1725; C1751; C1760; C1769; C1876; C1894; G0378; J0456; J0696; J1170; J1200; J1630; J1644; J1940; J2405; J2930; J3010; J3370; J3490; J7030; J7040; J7050; Q9967